=== PATIENT | male | born 1955 | race Caucasian/White ===

== ENCOUNTER 2021-07-13 20:09 | Emergency (ER) | payer MEDICAID, SELFPAY ==
--- NOTE | ~2021-07-13 | XR_ITS ---
EXAMINATION: XR CHEST CLINICAL INFORMATION: Fever. COMPARISON: None TECHNIQUE: Frontal view of the chest was obtained. FINDINGS: The lungs are clear. The cardiomediastinal silhouette is normal in size. There is no pleural effusion or pneumothorax. No acute osseous abnormality. XR/XR chest 1V IMPRESSION: No acute cardiopulmonary findings.
[2021-07-13 20:14] VITALS: BP 148/92; PULSE 103; RESP 18; TEMP 38.8; O2SAT 95; BMI 25.9
--- NOTE | 2021-07-13 20:38 | ED_ITS ---
HPI - General Adult General Chief complaint: Back Pain/Injury Stated complaint: Lower back pain Time Seen by Provider: 07/13/21 20:26 Source: patient Mode of arrival: ambulatory Limitations: no limitations History of Present Illness HPI narrative: Patient comes emergency room complaining middle and lower back pain, and bilateral leg pain. Patient has injury. Patient complaining of fever, no chills, complaining of fatigue, generalized malaise. Denies vomiting or diarrhea. Patient states that his granddaughter tested positive for COVID-19 approximately 1 week ago Related Data Previous Rx's Medication Instructions Recorded acetaminophen 500 mg tablet 500 mg PO QID PRN #20 tab 07/13/21 Allergies Allergy/AdvReac Type Severity Reaction Status Date / Time No Known Allergies Allergy Verified 07/13/21 20:34 Review of Systems Review of Systems: Constitutional : No Weight loss complaining of chills, generalized malaise ENT/Mouth : No Hearing loss, No Ear Pain, No Nasal Congestion, No Sinus Pain, No Hoarseness, No sore throat, No Rhinorrhea, No Swallowing Difficulty Eyes: Being of bilateral eye burning sensation, No Swelling, No Redness, No Foreign Body, No Discharge, No Vision Changes Cardiovascular : No Chest Pain, No SOB, No Dyspnea on Exertion, No Orthopnea, No Edema, No Palpitations Respiratory : No Cough, No Sputum, No Wheezing, No Smoke Exposure, No Dyspnea Gastrointestinal : No Nausea, No Vomiting, No Diarrhea, No Constipation, No abdominal Pain, No Hematochezia, No Melena Genitourinary : no irregular bleeding, No Dysuria, No Urinary Frequency, No Hematuria, No Urinary Incontinence, No Urgency, No Flank Pain, No Urinary Flow Changes, No Hesitancy Musculoskeletal : Complaining of diffuse myalgias in the back, legs, Skin : No Skin Lesions, No rash Neuro : No Weakness, No Numbness, No Paresthesias, No Loss of Consciousness, No Dizziness, No Headache Psych : No Anxiety/Panic, No Depression, No SI/HI/AH/VH, No Social Issues, Heme/Lymph: No Bruising, No Bleeding,No Lymphadenopathy Endocrine : No Polyuria, No Polydipsia, No Temperature Intolerance [facility] Past Medical History Medical History (Updated 07/13/21 @ 22:31 by Becka Antoine MD) Hypertension Social History Social History Advance Directives: No Advance Directives Information Provided: No Physical Exam Vital Signs: Vital Signs: Last Vital Signs Temp 100.3 F 07/13/21 22:24 Pulse 95 07/13/21 22:24 Resp 16 07/13/21 22:24 BP 142/84 H 07/13/21 22:24 Pulse Ox 97 07/13/21 22:24 Body Mass Index 25.9 Const: Other: Appearance: Alert. Oriented X3. No acute distress. Eyes: Pupils equal, round and reactive to light. ENT: Pharynx normal. Neck: Normal inspection. Neck supple. No lymph nodes noted. No crepitus CVS: Normal heart rate and rhythm. Pulses normal. Normal S1 and S2 Respiratory: No respiratory distress. Breath sounds normal. No Wheezing. No rales Abdomen: Soft and nontender. No rigidity. No distention. good BS x4 Skin: Skin warm and dry. Normal skin color. Normal skin turgor. Extremities: No lower extremity edema.No Lacerations. No Rash Neuro: Oriented X 3. No motor deficit. No sensory deficit. Moving all extermities. No slurred speech. Course Course Course Narrative: I discussed with the patient that he tested positive for COVID-19. Medical Decision Making Lab Data Labs: Lab Results 07/13/21 07/13/21 Range/Units 20:36 20:49 Urine Color YELLOW Urine Appearance HAZY Urine pH 6.0 (5.0-8.0) Ur Specific [place] 1.025 (1.005-1.025) Urine Protein TRACE (NEG-TRACE) MG/DL Urine Glucose (UA) NEG (NEG) MG/DL Urine Ketones 5 (NEG) MG/DL Urine Blood 3+ H (NEG) Urine Nitrite NEG (NEG) Ur Leukocyte Esterase NEG (NEG) Urine RBC 76-150 H (0) /HPF Urine WBC 0-2 (0-4) /HPF Ur Squamous Epith Cells 1+ /LPF Urine Bacteria NONE /LPF COVID-19 (DAVID) Positive A (Negative) COVID-19 Clin Com See Note Imaging Data Chest x-ray: Radiologist's impression: The lungs are clear. The cardiomediastinal silhouette is normal in size. There is no pleural effusion or pneumothorax. No acute osseous abnormality. XR/XR chest 1V IMPRESSION: No acute cardiopulmonary findings. Discharge Plan Discharge Clinical Impression: COVID-19 Patient Disposition: Home, Self-Care Instructions: COVID-19 (Coronavirus Disease 2019) (ED) Additional Instructions: You need to self isolate for 14 days. Please follow-up with your primary care physician tomorrow. If you have any worsening or new symptoms, please return to the emergency room or call 911 Prescriptions: New acetaminophen 500 mg tablet 500 mg PO QID PRN (Reason: fever or pain) Qty: 20 RF: 0
[2021-07-13] MEDS: Acetaminophen 325 MG TABLET 650 MG PO (20:44)
[2021-07-13 20:49] LABS: COVID-19 Test Positive (Negative)
[2021-07-13 20:55] LABS: Glucose Urine UA NEG (NEG); Leukocyte Esterase Urine NEG (NEG); Nitrite Urine NEG (NEG); Specific Gravity - Urine 1.025 (1.005-1.025); UACC Culture Trigger NO; Urine Blood 3+ (NEG); Urine Ketones 5 MG/DL (NEG); Urine Protein TRACE MG/DL (NEG-TRACE)
[2021-07-13 20:56] LABS: Appearance Urine HAZY; Color Urine YELLOW
[2021-07-13 21:02] LABS: Squamous Epithelial Cell Urine 1+ /LPF; WBC Urine 0-2 /HPF (0-4)
[2021-07-13 22:24] VITALS: BP 142/84; PULSE 95; RESP 16; TEMP 37.9; O2SAT 97
== END 2021-07-13 23:25 | disposition home or self-care (01) ==
PROVIDERS: Emergency Provider Emergency Medicine; PCP Internal Medicine
DX: U07.1 COVID-19 (principal); R50.9 Fever, unspecified; I10 Essential (primary) hypertension
CPT/HCPCS: 36415; 71045; 81001; 87635; 99283; 99284

== ENCOUNTER 2022-05-21 15:52 | Emergency (ER) | payer MEDICARE, MEDICAID, SELFPAY ==
--- NOTE | ~2022-05-21 | XR_ITS ---
EXAMINATION: XR LUMBOSACRAL SPINE CLINICAL INFORMATION: Back pain. COMPARISON: 07/01/2019 lumbar spine radiographs. TECHNIQUE: Three views of the lumbosacral spine. FINDINGS: L5-S1 is transitional with partial lumbarization of S1, greater on the right. There is normal lumbar lordosis and spinal alignment. Mild multilevel disc space narrowing is seen. There is no acute fracture. The soft tissues are unremarkable. 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 No definitive acute abnormality.
--- NOTE | 2022-05-21 16:14 | ECG_ITS ---
Test Reason : syncope Blood Pressure : / mmHG Vent. Rate : 067 BPM Atrial Rate : 067 BPM P-R Int : 148 ms QRS Dur : 094 ms QT Int : 372 ms P-R-T Axes : 052 040 041 degrees QTc Int : 393 ms Normal sinus rhythm Normal ECG No previous ECGs available Referred By: Lizz Ferguson Electronically Signed By:ANDREAS BERMUDEZ MD
--- NOTE | 2022-05-21 16:16 | ED_ITS ---
HPI - Extremity Injury (Upper) General Chief Complaint: Syncope Stated Complaint: rt hand laceration Time Seen by Provider: 05/21/22 16:03 Source: patient and family Mode of arrival: ambulatory Limitations: language barrier History of Present Illness HPI narrative: 66-year-old male with a history of hypertension here with reports of laceration to the right hand. Patient is right-hand dominant. Was cleaning some brush by a metal fence with his hand slipped causing it to puncture into the top of the nate on the fence. Patient was able to remove his hand from the fence. After this he felt very dizzy and lightheaded. His daughter said he got very pale and sweaty when she was managing his hand. She tells me she lowered him to the ground and she believes he may have briefly lost consciousness. No shaking activity or incontinence. No preceding symptoms of chest pain or palpitations. Patient had 2 additional episodes after this happened. Last tetanus unknown Related Data Previous Rx's Medication Instructions Recorded acetaminophen 500 mg tablet 500 mg PO QID PRN fever or pain 07/13/21 #20 tabs Allergies Allergy/AdvReac Type Severity Reaction Status Date / Time No Known Allergies Allergy Verified 07/13/21 20:34 Review of Systems Review of Systems: Yes all other systems are reviewed and are negative Constitutional: Constitutional: Reports no additional constitutional complaints, Denies body ache(s), Denies chills, Denies fever(s), Denies headache(s) and Denies weakness Eyes: Eyes: Reports no additional eye complaints and Denies change in vision ENT: Reports system reviewed and no additional complaints, except as documented, Reports dizziness, Denies headache(s), Denies nasal congestion, Denies nasal discharge and Denies neck pain Cardiovascular: Cardiovascular: Reports no additional cardiovascular complaints, Denies chest pain, Reports syncope, Denies leg edema and Denies dyspnea Respiratory: Respiratory: Reports no additional respiratory complaints, Denies cough and Denies dyspnea Gastrointestinal: Gastrointestinal: Reports no additional gastrointestinal complaints, Denies abdominal pain, Denies diarrhea, Denies nausea and Denies vomiting Genitourinary: Genitourinary: Denies urinary incontinence Musculoskeletal: Musculoskeletal: Reports no additional musculoskeletal complaints, Denies back pain, Denies arthralgias, Denies joint swelling, Denies neck pain, Denies numbness and Denies tingling Integumentary/Breasts: Skin/Breast: Reports system reviewed and no additional complaints, except as docu and Denies rash Comments: +lac Neurologic: Reports system reviewed and no additional complaints, except as documented, Denies Abnormal speech present, Reports dizziness, Reports syncope, Denies headache(s), Denies numbness, Denies tingling and Denies weakness PMFSH Past Medical History Attestation statement: The following information was validated with the patient. Source: old records reviewed and nursing notes reviewed Medical History Hypertension Social History Social History Advance Directives: No Advance Directives Information Provided: No Physical Exam Vital Signs: Vital Signs: Last Vital Signs Temp 98.1 F 05/21/22 16:48 Pulse 76 05/21/22 17:17 Resp 16 05/21/22 16:38 BP 108/76 05/21/22 17:17 Pulse Ox 99 05/21/22 16:48 O2 Del Method 05/21/22 16:48 BMI result Body Mass Index 24.3 Const: General: cooperative, healthy appearing, comfortable and no acute distress Orientation/consciousness: patient oriented x3 Limitations: no limitations HEENT: Head: Yes normal to inspection Ears: hearing grossly normal bilaterally General nose exam: Normal external nose present Face and sinus: Yes normal facial exam Mouth: Normal oral and palatal mucosa present Throat: Yes posterior oropharynx normal Eyes: General: appearance normal, both eyes and all related structures Pupils: Equal, round and reactive pupils present Neck: Neck: Yes normal visual inspection Chest: Chest palpation & inspection: normal inspection of the chest Resp: Effort & Inspection: normal respiratory effort Auscultation: clear to auscultation bilaterally Cardio: Rate: regular rate Rhythm: regular rhythm Peripheral pulses: Peripheral pulses 2+ throughout GI: Inspection: Yes normal to inspection Palpation (GI): Soft to palpation and nontender Auscultation: normal bowel sounds Back/Spine/Pelvis: Thoracic/Lumbar Spine: thoracic and lumbar spine normal to inspection Skin: General skin exam: no rashes or lesions noted Neuro: General: patient oriented x3, no focal motor deficits and normal sensation to monofilament Cranial nerves: Yes CN's II-XII intact bilaterally, Yes Equal, round and reactive pupils present, Yes Bilaterally intact EOM present, Yes Nystagmus not present, Yes Normal facial strength present and Yes Midline tongue present Cognition (Neuro): normal cognition Speech: No Abnormal speech present Gait exam (Neuro): Normal gait present Motor exam (neuro): 5/5 motor strength present throughout Sensory Exam: Normal double simultaneous stimulation for sensation Extrem: General: Yes normal to inspection, Yes no pedal edema and Yes no calf tenderness Hand/finger images: 1. To the lateral aspect there is a laceration that is a flap and curved. Bleeding is controlled. It is approximately 1 cm Course Course Course Narrative: Labs are unremarkable. EKG shows no ischemic changes. Patient complaining of some lower back pain. He has some mid lumbar tenderness with no step-offs deformities. Full range of motion of the lumbar spine. Normal neuro exam. Will check x-rays. His orthostatics are positive. Will give 1 L of fluid Reevaluation(s) Reevaluation #1: X-rays of lumbar spine showed degenerative changes. No acute bony abnormality. Patient will be discharged when his fluids are completed. Sign out to Yoana WOODRUFF pending fluids completion. Time: 19:00 MDM - Extremity Injury (Upper) MDM Narrative Medical decision making narrative: 66-year-old male here with laceration to the right hand after a puncture wound from a piece of metal fence. Patient has had several syncopal episodes since the injury which has preceding symptoms of feeling lightheaded and dizzy. No reports of chest pain or shortness of breath or palpitations. Patient's neurological exam is normal. He has a small puncture wound to the right lateral aspect of the hand. Bleeding is controlled. Will need updated tenderness. Due to reports of syncope will obtain labs, EKG, orthostatics. Likely vasovagal Medical Records Attestation: I reviewed the patient's medical records. Lab Data Attestation: I reviewed the patient's lab results. Result diagrams: 05/21/22 16:31 05/21/22 16:31 Labs: Lab Results 05/21/22 05/21/22 05/21/22 Range/Units 16:31 16:31 16:31 WBC 8.5 (4.8-10.8) X10*3/uL RBC 4.12 L (4.60-5.80) X10*6/uL Hgb 13.1 L (14.0-18.0) g/dl Hct 38.1 L (42.0-52.0) % MCV 92.5 (80.0-98.0) fL MCH 31.8 (27.0-33.0) pg MCHC 34.4 (31.0-36.0) g/dl RDW 12.7 (11.0-16.0) % Plt Count 259 (160-400) X10*3/uL MPV 9.4 (9.4-12.4) fL Immature Gran % (Auto) 1.1 H (0.0-0.4) % Neut % (Auto) 68.9 (45-73) % Lymph % (Auto) 20.8 (20-40) % [place] % (Auto) 7.5 (2-11) % Eos % (Auto) 1.1 (0-4) % Baso % (Auto) 0.6 (0-2) % Lymph # (Auto) 1.8 (1.2-4.9) X10*3/uL [place] # (Auto) 0.6 (0.1-1.2) X10*3/uL Eos # (Auto) 0.1 (0.0-0.4) X10*3/uL Baso # (Auto) 0.1 (0.0-0.2) X10*3/uL Abs Immat Gran (auto) 0.09 H (0.00-0.03) X10*3/uL Absolute Neuts (auto) 5.9 (2.0-8.3) x10*3/uL Absolute Nucleated RBC 0.000 (0.0-0.012) X10*3/uL Nucleated RBC % (auto) 0.0 (0.0-0.2) /100WBC Sodium 137 (135-145) mmol/L Potassium 4.5 (3.3-5.1) mmol/L Chloride 105 (96-108) mmol/L Carbon Dioxide 25 (22-29) mmol/L Anion Gap 12 (12-20) BUN 19 H (9-16) mg/dL Creatinine 1.25 (0.5-1.4) mg/dL Estim Creat Clear Calc 55.8 Estimated GFR 58 Random Glucose 160 H (60-115) mg/dL Calcium 9.8 (8.4-10.2) mg/dL Total Bilirubin 1.0 (0.0-1.0) mg/dL Direct Bilirubin 0.3 (0.0-0.5) mg/dL AST 16 (5-37) U/L ALT 14 (0-40) U/L Alkaline Phosphatase 68 (39-117) U/L Troponin I High Sens < 3.5 (<3.5-35.0) ng/L Total Protein 7.4 (6.5-8.0) g/dL Albumin 4.1 (3.5-5.0) g/dL Imaging Data lumbar x-ray: Attestation: I personally reviewed and interpreted this imaging study as follows: Radiologist's impression: [address] [address] XRay Report Signed Patient: Abraham Camacho MR#: [id number] : 1955 Acct:[id number] Age/Sex: 66 / M ADM Date: 05/21/22 Loc: .ED Attending Dr: Ordering Physician: Lizz Ferguson NP Date of Service: 05/21/22 Procedure(s): XR lumbar spine 2-3V Accession Number(s): [id number] cc: Lizz Ferguson NP~ EXAMINATION: XR LUMBOSACRAL SPINE CLINICAL INFORMATION: Back pain. COMPARISON: 07/01/2019 lumbar spine radiographs. TECHNIQUE: Three views of the lumbosacral spine. FINDINGS: L5-S1 is transitional with partial lumbarization of S1, greater on the right. There is normal lumbar lordosis and spinal alignment. Mild multilevel disc space narrowing is seen. There is no acute fracture. The soft tissues are unremarkable. 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 No definitive acute abnormality. ECG Data Attestation: I personally reviewed and interpreted this ECG as follows: ECG interpretation date: 05/21/22 ECG interpretation time: 16:28 Interpretation: Normal sinus rhythm with a rate of 67, normal HI, normal QRS, normal QT Procedures Laceration Laceration 1: Site: hand Side (If applicable): right Size (cm): 1.5 Description: flap Depth: simple, single layer Local Anesthetic: other anesthetic (Skin glue) Pre-repair: wound explored and irrigated extensively Discharge Plan Discharge Clinical Impression: Vasovagal syncope, Syncope due to orthostatic hypotension, Low back pain, Laceration of hand Patient Disposition: Still a Patient Instructions: Laceration (ED), Syncope (ED), Acute Low Back Pain (ED) Additional Instructions: Your laceration was closed with skin glue. There were Steri-Strips that were applied. After 5-7 days he is will fall off on their own. Do not remove them. Your EKG and lab work were normal. Your blood pressure did drop with position changes. Your received some IV fluids while you are here Change positions slowly. Stay well hydrated Your x-rays of your back showed degenerative changes. Prescriptions: No Action acetaminophen 500 mg tablet 500 mg PO QID PRN (Reason: fever or pain) Qty: 20 0RF Referrals: Annette Emanuel MD [Primary Care Provider] -
[2022-05-21 16:23] VITALS: BP 120/64; PULSE 65
[2022-05-21 16:38] VITALS: BP 120/64; PULSE 66; RESP 16; TEMP 36.7; O2SAT 99; BMI 24.3
[2022-05-21 16:38] LABS: MANUAL DIFF FLAG NO
[2022-05-21 16:48] VITALS: BP 120/64; PULSE 66; TEMP 36.7; O2SAT 99
[2022-05-21 16:59] LABS: Alanine Aminotransferase 14 U/L (0-40); Albumin Level 4.1 g/dL (3.5-5.0); Alkaline Phosphatase 68 U/L (39-117); Anion Gap 12 (12-20); Aspartate Amino Transferase 16 U/L (5-37); Bilirubin Direct 0.3 mg/dL (0.0-0.5); Blood Urea Nitrogen 19 mg/dL (9-16); Calcium 9.8 mg/dL (8.4-10.2); Carbon Dioxide 25 mmol/L (22-29); Chloride 105 mmol/L (96-108); Creatinine Clr Calc Pharmacy 55.8; Estimated Glomerular Filt Rate 58; Glucose Random 160 mg/dL (60-115); Potassium 4.5 mmol/L (3.3-5.1); Sodium 137 mmol/L (135-145); Total Protein 7.4 g/dL (6.5-8.0)
[2022-05-21 17:02] LABS: Basophils Absolute Auto 0.1 X10*3/uL (0.0-0.2); Basophils Percent Auto 0.6 % (0-2); Eosinophils Absolute Auto 0.1 X10*3/uL (0.0-0.4); Eosinophils Percent Auto 1.1 % (0-4); Hematocrit 38.1 % (42.0-52.0); Hemoglobin 13.1 g/dl (14.0-18.0); Imm Gran Abs Auto 0.09 X10*3/uL (0.00-0.03); Imm Gran Pct Auto 1.1 % (0.0-0.4); Lymphocytes Absolute Auto 1.8 X10*3/uL (1.2-4.9); Lymphocytes Percent Auto 20.8 % (20-40); Mean Corpuscular HGB Conc 34.4 g/dl (31.0-36.0); Mean Corpuscular Hemoglobin 31.8 pg (27.0-33.0); Mean Corpuscular Volume 92.5 fL (80.0-98.0); Mean Platelet Volume 9.4 fL (9.4-12.4); Monocytes Absolute Auto 0.6 X10*3/uL (0.1-1.2); Monocytes Percent Auto 7.5 % (2-11); Neutrophils Absolute Auto 5.9 x10*3/uL (2.0-8.3); Neutrophils Percent Auto 68.9 % (45-73); Platelet Count 259 X10*3/uL (160-400); Red Blood Count 4.12 X10*6/uL (4.60-5.80); Red Cell Distribution Width 12.7 % (11.0-16.0); White Blood Count 8.5 X10*3/uL (4.8-10.8)
[2022-05-21 17:05] LABS: Troponin-I High Sensitivity < 3.5 ng/L (<3.5-35.0)
[2022-05-21 17:16] VITALS: BP 138/75; PULSE 67
[2022-05-21 17:17] VITALS: BP 108/76; PULSE 76
[2022-05-21] MEDS: 0.9 % Sodium Chloride 1,000 ML 999 ML IV (18:17)
[2022-05-21] MEDS: Diphth,Pertus(ACell),Tet Adult 0.5 ML SYRINGE IM (18:17)
== END 2022-05-21 20:05 | disposition home or self-care (01) ==
PROVIDERS: Nurse Practitioner Family; Emergency Provider Emergency Medicine; PCP Internal Medicine
DX: S61.411A Laceration without foreign body of right hand, initial encounter (principal); R55 Syncope and collapse; M54.50 Low back pain, unspecified; W26.9XXA Contact with unspecified sharp object(s), initial encounter; Y93.9 Activity, unspecified; Y92.9 Unspecified place or not applicable; Y99.9 Unspecified external cause status; Z79.899 Other long term (current) drug therapy
CPT/HCPCS: 12001; 36415; 72100; 80048; 80076; 84484; 85025; 90471; 90715; 93005; 96360; 99284

== ENCOUNTER 2023-01-12 15:16 | Observation (INO) | payer MEDICARE, MEDICAID, SELFPAY ==
[2023-01-12 15:29] VITALS: BP 139/85; PULSE 95; RESP 20; TEMP 36.7; O2SAT 97; BMI 24.1
--- NOTE | 2023-01-12 15:32 | ED_ITS ---
HPI - General Adult General Chief complaint: General Medical Stated complaint: Lympodema Time Seen by Provider: 01/12/23 15:28 Source: patient Mode of arrival: EMS Limitations: no limitations History of Present Illness HPI narrative: Patient comes to the emergency room complaining of upper lip swelling started approximately 9 hours ago. Patient states that it started on the right side of his upper lip and gradually expanded to the left side of his upper lip. Patient denies any difficulty breathing, no shortness of breath. Patient states that his lip feels weird. Patient takes for blood pressure medications a combination pill of amlodipine 10 mg/benazepril 40 mg Related Data Previous Rx's Medication Instructions Recorded acetaminophen 500 mg tablet 500 mg PO QID PRN fever or pain 07/13/21 #20 tabs Allergies Allergy/AdvReac Type Severity Reaction Status Date / Time RENA Inhibitors AdvReac Severe Angioedema Verified 01/12/23 15:38 Review of Systems Review of Systems: Constitutional : No Weight loss, No Fever, No Chills, No Night Sweats, No Fatigue, No Malaise ENT/Mouth : Complaining of upper lip swelling, No Hearing loss, No Ear Pain, No Nasal Congestion, No Sinus Pain, No Hoarseness, No sore throat, No Rhinorrhea, No Swallowing Difficulty Eyes: No Eye Pain, No Swelling, No Redness, No Foreign Body, No Discharge, No Vision Changes Cardiovascular : No Chest Pain, No SOB, No Dyspnea on Exertion, No Orthopnea, No Edema, No Palpitations Respiratory : No Cough, No Sputum, No Wheezing, No Smoke Exposure, No Dyspnea Gastrointestinal : No Nausea, No Vomiting, No Diarrhea, No Constipation, No abdominal Pain, No Hematochezia, No Melena Genitourinary : no irregular bleeding, No Dysuria, No Urinary Frequency, No Hematuria, No Urinary Incontinence, No Urgency, No Flank Pain, No Urinary Flow Changes, No Hesitancy Musculoskeletal : No joint pain, No Myalgias, No Joint Swelling Skin : No Skin Lesions, No rash Neuro : No Weakness, No Numbness, No Paresthesias, No Loss of Consciousness, No Dizziness, No Headache Psych : No Anxiety/Panic, No Depression, No SI/HI/AH/VH, No Social Issues, Heme/Lymph: No Bruising, No Bleeding,No Lymphadenopathy Endocrine : No Polyuria, No Polydipsia, No Temperature Intolerance [facility] Past Medical History Medical History Hypertension Social History Social History Patient Tobacco Use Status: Never used Tobacco Advance Directives: No Advance Directives Information Provided: No Physical Exam ED Vital Signs: Vital Signs - 24 hr 01/12/23 15:29 01/12/23 18:03 01/12/23 20:00 Temperature 98.1 F 98.4 F 98.3 F Pulse Rate 95 72 67 Respiratory Rate 20 18 12 Blood Pressure 139/85 131/78 126/73 Pulse Oximetry 97 98 98 Oxygen Delivery Method Room Air Room Air Room Air BMI result Body Mass Index 24.1 Medications Administered Generic Name Dose Route Start Last Admin Trade Name Freq PRN Reason Stop Dose Admin Enoxaparin Sodium 40 mg 01/12/23 23:00 01/12/23 22:33 Enoxaparin Sodium 40 Mg/0.4 Ml Syringe SUBCUT 40 mg Q24H [place] Administration Enoxaparin Sodium 40 mg 01/12/23 23:00 01/12/23 22:43 Enoxaparin Sodium 40 Mg/0.4 Ml Syringe SUBCUT Not Given Q24H [place] Discontinued Medications Generic Name Dose Route Start Last Admin Trade Name Freq PRN Reason Stop Dose Admin Diphenhydramine HCl 50 mg 01/12/23 15:29 01/12/23 15:47 Diphenhydramine Hcl 50 Mg/Ml Vial IVPUSH 01/12/23 15:30 50 mg ONCE ONE Administration Diphenhydramine HCl 25 mg 01/12/23 18:15 01/12/23 19:18 Diphenhydramine Hcl 50 Mg/Ml Vial IVPUSH 01/12/23 18:16 25 mg ONCE ONE Administration Famotidine 20 mg 01/12/23 15:29 01/12/23 15:47 Famotidine/Pf 20 Mg/2 Ml Vial IVPUSH 01/12/23 15:30 20 mg ONCE ONE Administration Famotidine 20 mg 01/12/23 18:15 01/12/23 19:18 Famotidine/Pf 20 Mg/2 Ml Vial IVPUSH 01/12/23 18:16 20 mg ONCE ONE Administration Methylprednisolone Sodium Succinate 125 mg 01/12/23 15:29 01/12/23 15:47 Methylprednisolone Sod Succ 125 Mg/2 Ml Vial IVPUSH 01/12/23 15:30 125 mg ONCE ONE Administration Methylprednisolone Sodium Succinate 125 mg 01/12/23 18:15 01/12/23 19:18 Methylprednisolone Sod Succ 125 Mg/2 Ml Vial IVPUSH 01/12/23 18:16 125 mg ONCE ONE Administration Medical Decision Making Medical Decision Making [facility] Narrative: -patient received 1 dose of Solu-Medrol, Pepcid and Benadryl, no epinephrine indicated at this time. -patient was in observation, however he did not improve, -patient receiving another round of Solu-Medrol, Pepcid and Benadryl. Patient remains complaining of swollen upper lip, no airway compromise, no difficulty swallowing, no shortness of breath or foreign body sensation in the throat -despite several treatments, patient's lips continue being swollen, they actually look a bit more swollen. However, there is no uvular or oropharyngeal edema, no difficulty speaking or swallowing, no tongue edema. -discussed the patient with Dr. Araujo, patient being admitted for observation. I discussed the above-mentioned with the patient, patient agrees with plan Differential Diagnosis Differential Diagnoses: The differential diagnosis associated with the presentation includes (Allergic reaction, angioedema) Admission/Observation Consideration of admission/observation: Escalation of care including admission/observation considered Consult Healthcare Provider Management of the patient was discussed with: Hospitalist Lab Data [facility] Lab Attestation statement: I reviewed the patient's lab results. 01/12/23 16:07 01/12/23 16:07 Labs: Lab Results 01/12/23 01/12/23 Range/Units 16:07 16:07 WBC 6.8 (4.8-10.8) X10*3/uL RBC 4.05 L (4.60-5.80) X10*6/uL Hgb 12.3 L (14.0-18.0) g/dl Hct 36.9 L (42.0-52.0) % MCV 91.1 (80.0-98.0) fL MCH 30.4 (27.0-33.0) pg MCHC 33.3 (31.0-36.0) g/dl RDW 12.7 (11.0-16.0) % Plt Count 258 (160-400) X10*3/uL MPV 8.9 L (9.4-12.4) fL Immature Gran % (Auto) 0.3 (0.0-0.4) % Neut % (Auto) 65.4 (45-73) % Lymph % (Auto) 21.0 (20-40) % [place] % (Auto) 7.9 (2-11) % Eos % (Auto) 4.8 H (0-4) % Baso % (Auto) 0.6 (0-2) % Lymph # (Auto) 1.4 (1.2-4.9) X10*3/uL [place] # (Auto) 0.5 (0.1-1.2) X10*3/uL Eos # (Auto) 0.3 (0.0-0.4) X10*3/uL Baso # (Auto) 0.0 (0.0-0.2) X10*3/uL Abs Immat Gran (auto) 0.02 (0.00-0.03) X10*3/uL Absolute Neuts (auto) 4.5 (2.0-8.3) x10*3/uL Absolute Nucleated RBC 0.000 (0.0-0.012) X10*3/uL Nucleated RBC % (auto) 0.0 (0.0-0.2) /100WBC Sodium 140 (135-145) mmol/L Potassium 4.1 (3.3-5.1) mmol/L Chloride 108 (96-108) mmol/L Carbon Dioxide 25 (22-29) mmol/L Anion Gap 11 L (12-20) BUN 14 (9-16) mg/dL Creatinine 1.12 (0.5-1.4) mg/dL Estim Creat Clear Calc 61.4 Estimated GFR > 60 Random Glucose 104 (60-115) mg/dL Calcium 9.4 (8.4-10.2) mg/dL Critical Care Time Critical Care Time Critical Care Time: Yes Total Critical Care Time: 45 Attestation: I have personally provided critical care time. Time includes review of lab data, radiology results, discussion with consultants, and monitoring for potential decompensation. Intervention performed as documented. Discharge Plan Discharge Clinical Impression: Angioedema Patient Disposition: Admitted As Inpatient Prescriptions: No Action acetaminophen 500 mg tablet 500 mg PO QID PRN (Reason: fever or pain) Qty: 20 0RF
[2023-01-12] MEDS: diphenhydrAMINE HCL 50 MG/ML VIAL IVPUSH (15:47)
[2023-01-12] MEDS: methylPREDNISolone Sod Succ 125 MG/2 ML VIAL IVPUSH ×2 (15:47→19:18)
[2023-01-12] MEDS: Famotidine/PF 20 MG/2 ML VIAL IVPUSH ×2 (15:47→19:18)
[2023-01-12 16:12] LABS: MANUAL DIFF FLAG NO
[2023-01-12 16:15] LABS: Basophils Percent Auto 0.6 % (0-2); Eosinophils Absolute Auto 0.3 X10*3/uL (0.0-0.4); Eosinophils Percent Auto 4.8 % (0-4); Hematocrit 36.9 % (42.0-52.0); Hemoglobin 12.3 g/dl (14.0-18.0); Imm Gran Abs Auto 0.02 X10*3/uL (0.00-0.03); Imm Gran Pct Auto 0.3 % (0.0-0.4); Lymphocytes Absolute Auto 1.4 X10*3/uL (1.2-4.9); Mean Corpuscular HGB Conc 33.3 g/dl (31.0-36.0); Mean Corpuscular Hemoglobin 30.4 pg (27.0-33.0); Mean Corpuscular Volume 91.1 fL (80.0-98.0); Mean Platelet Volume 8.9 fL (9.4-12.4); Monocytes Absolute Auto 0.5 X10*3/uL (0.1-1.2); Monocytes Percent Auto 7.9 % (2-11); Neutrophils Absolute Auto 4.5 x10*3/uL (2.0-8.3); Neutrophils Percent Auto 65.4 % (45-73); Platelet Count 258 X10*3/uL (160-400); Red Blood Count 4.05 X10*6/uL (4.60-5.80); Red Cell Distribution Width 12.7 % (11.0-16.0); White Blood Count 6.8 X10*3/uL (4.8-10.8)
[2023-01-12 16:30] LABS: Anion Gap 11 (12-20); Blood Urea Nitrogen 14 mg/dL (9-16); Calcium 9.4 mg/dL (8.4-10.2); Carbon Dioxide 25 mmol/L (22-29); Chloride 108 mmol/L (96-108); Creatinine Clr Calc Pharmacy 61.4; Estimated Glomerular Filt Rate > 60; Glucose Random 104 mg/dL (60-115); Potassium 4.1 mmol/L (3.3-5.1); Sodium 140 mmol/L (135-145)
[2023-01-12 18:03] VITALS: BP 131/78; PULSE 72; RESP 18; TEMP 36.9; O2SAT 98
[2023-01-12] MEDS: diphenhydrAMINE HCL 50 MG/ML VIAL 25 MG IVPUSH (19:18)
[2023-01-12 20:00] VITALS: BP 126/73; PULSE 67; RESP 12; TEMP 36.8; O2SAT 98
--- NOTE | 2023-01-12 22:26 | P.HPHOSP_ITS ---
History of Present Illness Date of Service: 01/12/23 Chief Complaint: Lip swelling this is a 67-year-old male with pertinent history of essential hypertension who presents to the emergency department for evaluation of upper lip swelling. It started approximately 9-10 hours prior to presentation. It was sudden in onset and involved the whole of upper lip. This has never happened before. No itching, difficulty breathing, difficulty eating, dyspnea. Patient is on RENA- inhibitor for essential hypertension. He denies fever, chills, chest discomfort, palpitations, shortness of breath, abdominal pain, changes in urinary or bowel habits. In the emergency department, patient is hemodynamically stable. He was given H2 blockers and steroid. Review of Systems Constitutional: Constitutional: Reports no additional constitutional complaints Cardiovascular: Cardiovascular: Reports no additional cardiovascular complaints Respiratory: Respiratory: Reports no additional respiratory complaints Gastrointestinal: Gastrointestinal: Reports no additional gastrointestinal complaints Genitourinary: Genitourinary: Reports no additional male genitourinary complaints PMFSH Medical History Hypertension Pertinent family history: No family history of CAD Social History Advance Directives: No Advance Directives Information Provided: No Meds Allergies Allergy/AdvReac Type Severity Reaction Status Date / Time RENA Inhibitors AdvReac Severe Angioedema Verified 01/12/23 15:38 Active Medications: Current Medications Acetaminophen (Acetaminophen 325 Mg Tablet) 650 mg PO Q6H PRN PRN Reason: Pain, Mild (Pain Scale 1-3) Enoxaparin Sodium (Enoxaparin Sodium 40 Mg/0.4 Ml Syringe) 40 mg SUBCUT Q24H THEODORE Melatonin (Melatonin 3 Mg Tablet) 6 mg PO BEDTIME PRN PRN Reason: Insomnia Ondansetron HCl (Ondansetron Hcl 4 Mg/2 Ml Vial) 4 mg IVPUSH Q8H PRN PRN Reason: Nausea and Vomiting Pharmacy Consult (Consult Rx Perform Med Rec) 1 each MISCELLANE ONCE PRN PRN Reason: Consult order Sodium Chloride (0.9 % Sodium Chloride Flush 3 Ml Syringe) 3 ml IVFLUSH QSHIFT THEODORE Physical Exam Vital Signs and Narrative: Vital Signs: Last Vital Signs Temp 98.3 F 01/12/23 20:00 Pulse 67 01/12/23 20:00 Resp 12 01/12/23 20:00 BP 126/73 01/12/23 20:00 Pulse Ox 98 01/12/23 20:00 O2 Del Method 01/12/23 20:00 BMI result Body Mass Index 24.1 Middle-aged male lying in bed in no distress Neck supple, no JVD, upper lip swelling present Regular rate and rhythm, S1-S2 heard Regular breath sounds bilaterally, no wheezing or crackles appreciated Abdomen soft nontender, no guarding, no rigidity Patient is awake, alert and oriented to self, place, time and person ; no focal motor deficit Psych: Normal mood No pedal edema Results Labs 01/12/23 16:07 01/12/23 16:07 Labs: Laboratory Results - last 24 hr 01/12/23 01/12/23 16:07 16:07 MCV 91.1 MCH 30.4 MCHC 33.3 RDW 12.7 Plt Count 258 MPV 8.9 L Immature Gran % (Auto) 0.3 Neut % (Auto) 65.4 Lymph % (Auto) 21.0 [place] % (Auto) 7.9 Eos % (Auto) 4.8 H Baso % (Auto) 0.6 Lymph # (Auto) 1.4 [place] # (Auto) 0.5 Eos # (Auto) 0.3 Baso # (Auto) 0.0 Abs Immat Gran (auto) 0.02 Absolute Neuts (auto) 4.5 Absolute Nucleated RBC 0.000 Nucleated RBC % (auto) 0.0 Anion Gap 11 L Estim Creat Clear Calc 61.4 Estimated GFR > 60 Random Glucose 104 Calcium 9.4 Assessment and Plan (1) Angioedema: Status: Acute Plan this is a 67-year-old male with pertinent history of essential hypertension who presents to the emergency department for evaluation of upper lip swelling. #. Isolated angioedema of lip due to RENA-inhibitor: Discontinue RENA- inhibitor. Continue amlodipine. No concern for anaphylaxis or urticaria at the time of admission. Patient given antihistamine and steroid in the ER. Monitor for resolution. #. Essential hypertension: Continue amlodipine DVT prophylaxis: Lovenox 40 mg daily Full code Cardiac diet Time Spent With Patient Time: Total time managing care of this patient today ____ minutes. Quality Stroke Does the patient have a stroke diagnosis?: No VTE Prior VTE?: No VTE Risk Level:: Medical - moderate - high VTE Device Contraindication: Treatment Not Indicated VTE Drug Contraindication: N/A - Med Ordered
[2023-01-12] MEDS: Enoxaparin Sodium 40 MG/0.4 ML SYRINGE SUBCUT (22:33)
[2023-01-12 23:28] VITALS: BP 114/71; PULSE 68; RESP 14; TEMP 36.6; O2SAT 98
[2023-01-12 23:49] LABS: COVID-19 Test Negative (Negative); IDNOW Serial# 6674DD1D
[2023-01-13] MEDS: 0.9 % Sodium Chloride Flush 3 ML SYRINGE IVFLUSH ×2 (00:56→07:36)
--- NOTE | 2023-01-13 01:13 | PC.NURSE ---
Pt upper lip is swollen still, pt appears to be resting comfortably with no complaints. Pt's airway is patent with respirations equal bilaterally. Skin is warm and dry. Pt has been placed on the alarm security or surveillance monitor for continuous monitoring. No new orders at this time, pt is waiting bed placement.
[2023-01-13 05:47] LABS: Basophils Percent Auto 0.3 % (0-2); Hematocrit 39.3 % (42.0-52.0); Hemoglobin 13.1 g/dl (14.0-18.0); Imm Gran Abs Auto 0.04 X10*3/uL (0.00-0.03); Imm Gran Pct Auto 0.6 % (0.0-0.4); Lymphocytes Absolute Auto 0.9 X10*3/uL (1.2-4.9); Lymphocytes Percent Auto 14.5 % (20-40); MANUAL DIFF FLAG SCAN; Mean Corpuscular HGB Conc 33.3 g/dl (31.0-36.0); Mean Corpuscular Hemoglobin 30.2 pg (27.0-33.0); Mean Corpuscular Volume 90.6 fL (80.0-98.0); Mean Platelet Volume 8.7 fL (9.4-12.4); Monocytes Absolute Auto 0.1 X10*3/uL (0.1-1.2); Monocytes Percent Auto 1.1 % (2-11); Neutrophils Absolute Auto 5.4 x10*3/uL (2.0-8.3); Neutrophils Percent Auto 83.5 % (45-73); Platelet Count 278 X10*3/uL (160-400); Red Blood Count 4.34 X10*6/uL (4.60-5.80); Red Cell Distribution Width 12.4 % (11.0-16.0); SCAN SMEAR FLAG 1; White Blood Count 6.4 X10*3/uL (4.8-10.8)
[2023-01-13 06:03] LABS: Anion Gap 12 (12-20); Blood Urea Nitrogen 16 mg/dL (9-16); Calcium 9.3 mg/dL (8.4-10.2); Carbon Dioxide 23 mmol/L (22-29); Chloride 108 mmol/L (96-108); Creatinine Clr Calc Pharmacy 65.5; Estimated Glomerular Filt Rate > 60; Glucose Random 146 mg/dL (60-115); Potassium 4.4 mmol/L (3.3-5.1); Sodium 139 mmol/L (135-145)
[2023-01-13 06:22] VITALS: BP 115/73; PULSE 68; RESP 16; TEMP 36.8; O2SAT 97
[2023-01-13 06:25] LABS: SLIDE REVIEW VERIFIED
[2023-01-13] MEDS: amLODIPine Besylate 10 MG TABLET PO (07:35)
--- NOTE | 2023-01-13 08:03 | PC.NURSE ---
PT IS AWAKE AND HAD BREAKFAST. HE HAS A CHRONIC FOOT WOUND WITH EDEMA PRESENT/PLAN TO PLACE PT IN ADMISSION BED FOR BETTER POSITIONING. RANDOM GLUCOSE REMAINS OVER 400. IV ACCESS IS PATENT
--- NOTE | 2023-01-13 08:40 | PC.NURSE ---
PT WITHOUT SIGNIFICANT ANGIOEDEMA ,NO AIRWAY INVOLVEMENT, HE IS SITTING UPRIGHT AND HANDLES PO INTAKE WITHOUT DIFFICULTY.
--- NOTE | 2023-01-13 09:31 | PHA.MEDREC ---
Pharmacy Consult ? Medication Reconciliation Pharmacy has completed the medication reconciliation.
--- NOTE | 2023-01-13 10:01 | PM.DS ---
DS: Providers Provider Date of Service: 01/13/23 Date of admission: 01/12/23 22:05 Date of discharge: 01/13/23 Primary care physician: Unknown Physician Attending physician on discharge: Zaid Gomez DS: Diagnosis Discharge Diagnosis (1) Angioedema: Status: Acute DS: Summary Hospital Course Hospital Course: HPI: 67-year-old male with pertinent history of essential hypertension who presents to the emergency department for evaluation of upper lip swelling.? It started approximately 9-10 hours prior to presentation.? It was sudden in onset and involved the whole of upper lip.? This has never happened before.? No itching, difficulty breathing, difficulty eating, dyspnea.? Patient is on RENA-inhibitor for essential hypertension.? He denies fever, chills, chest discomfort, palpitations, shortness of breath, abdominal pain, changes in urinary or bowel habits. ? In the emergency department, patient is hemodynamically stable.? He was given H2 blockers and steroid. Hopsital course: Patient was admitted due to possible angioedema-swelling of lips-given steroids, Benadryl: Seems to be improved significantly,?He denies fever, chills, chest discomfort, palpitations, shortness of breath, abdominal pain, changes in urinary or bowel habits. Patient improved significantly, going home with p.o. steroids, Benadryl, EpiPen. Hypertension: patient's benzapril discontinued, continue amlodipine, so far blood pressure seems to be controlled. Patient was advised to monitor blood pressure out patiently and follow-up with PCP for further management. plan: continue p.o. steroids, Benadryl EpiPen also given . htn-patient's benzapril discontinued, continue amlodipine, so far blood pressure seems to be controlled. Follow-up with PCP outpatient. Above management discussed the patient detail length and in she understand and agreement with the plan, time spent 50 min. Time Spent with Patient Time attestation: Total time managing care of this patient today ____ minutes. Discharge coordination time: Greater than 30 minutes Quality: Safe Use of Opioids Does Pt have an Active Cancer Diagnosis on the Problem List?: No Quality: Stroke Does the patient have a stroke diagnosis?: No Physical Exam Vital Signs: Vital Signs: Last Vital Signs Temp 98.3 F 01/13/23 06:22 Pulse 68 02/14/23 06:22 Resp 16 01/13/23 06:22 BP 115/73 01/13/23 06:22 Pulse Ox 97 01/13/23 06:22 O2 Del Method 01/13/23 06:22 BMI result Body Mass Index 24.1 Appearance: Alert.? Oriented X3.? not in distress.? Eyes: Pupils equal, round and reactive to light.? Sclera nonicteric.? ENT: Pharynx normal.? Moist mucous membranes.lip swellin improved significantly cvs: rrr, [id number] , no murmur res: clear to auscultation ,no rhonchii or wheezing abd: no rebound or guarding ,nt, bs present. ext pulses present , no cyanosis . neuro: axo3 , nonfocal. DS: Data Data Completed and Pending Labs on day of discharge: Laboratory Results - last 24 hr 01/12/23 01/12/23 01/12/23 16:07 16:07 23:24 WBC 6.8 RBC 4.05 L Hgb 12.3 L Hct 36.9 L MCV 91.1 MCH 30.4 MCHC 33.3 RDW 12.7 Plt Count 258 MPV 8.9 L Immature Gran % (Auto) 0.3 Neut % (Auto) 65.4 Lymph % (Auto) 21.0 [place] % (Auto) 7.9 Eos % (Auto) 4.8 H Baso % (Auto) 0.6 Lymph # (Auto) 1.4 [place] # (Auto) 0.5 Eos # (Auto) 0.3 Baso # (Auto) 0.0 Abs Immat Gran (auto) 0.02 Absolute Neuts (auto) 4.5 Absolute Nucleated RBC 0.000 Nucleated RBC % (auto) 0.0 Smear Tech's Comments Sodium 140 Potassium 4.1 Chloride 108 Carbon Dioxide 25 Anion Gap 11 L BUN 14 Creatinine 1.12 Estim Creat Clear Calc 61.4 Estimated GFR > 60 Random Glucose 104 Calcium 9.4 COVID-19 (DAVID) Negative COVID-19 Clin Com See Note 01/13/23 01/13/23 05:35 05:35 WBC 6.4 RBC 4.34 L Hgb 13.1 L Hct 39.3 L MCV 90.6 MCH 30.2 MCHC 33.3 RDW 12.4 Plt Count 278 MPV 8.7 L Immature Gran % (Auto) 0.6 H Neut % (Auto) 83.5 H Lymph % (Auto) 14.5 L [place] % (Auto) 1.1 L Eos % (Auto) 0.0 Baso % (Auto) 0.3 Lymph # (Auto) 0.9 L [place] # (Auto) 0.1 Eos # (Auto) 0.0 Baso # (Auto) 0.0 Abs Immat Gran (auto) 0.04 H Absolute Neuts (auto) 5.4 Absolute Nucleated RBC 0.000 Nucleated RBC % (auto) 0.0 Smear Tech's Comments VERIFIED Sodium 139 Potassium 4.4 Chloride 108 Carbon Dioxide 23 Anion Gap 12 BUN 16 Creatinine 1.05 Estim Creat Clear Calc 65.5 Estimated GFR > 60 Random Glucose 146 H Calcium 9.3 COVID-19 (DAVID) COVID-19 Clin Com Discharge Plan Discharge Patient Disposition: Home, Self-Care Discharge Diagnosis: Angioedema suspected possibly related to RENA (blood pressure medication). Referrals: Physician,Unknown J [Primary Care Provider] - 1 Week Discharge Medications: New amlodipine [Norvasc] 10 mg tablet 10 mg PO DAILY Qty: 30 0RF prednisone 20 mg tablet 20 mg PO DAILY Qty: 2 0RF diphenhydramine HCl [Benadryl] 25 mg capsule 25 mg PO TID PRN (Reason: allergy symptoms) Qty: 6 0RF epinephrine [EpiPen] 0.3 mg/0.3 mL auto-injector 0.3 mg IM Q4H PRN (Reason: anaphylaxis) Qty: 2 0RF Continued acetaminophen 500 mg tablet 500 mg PO QID PRN (Reason: fever or pain) Qty: 20 0RF docusate sodium 100 mg capsule 1 cap PO BID Discontinued amlodipine-benazepril 10-40 mg capsule 1 cap PO DAILY Discharge Orders: Discharge Order (Routine); Ordered 01/13/23 Ordered By: Zaid Gomez Diet: Advance to usual diet Activity on Discharge: As tolerated Stand Alone Forms: Patient Portal Discharge page Care Plan Goals: Patient was admitted due to possible angioedema-swelling of lips-given steroids, Benadryl: Seems to be improved significantly,?He denies fever, chills, chest discomfort, palpitations, shortness of breath, abdominal pain, changes in urinary or bowel habits. Patient improved significantly, going home with p.o. steroids, Benadryl, EpiPen. Hypertension: patient's benzapril discontinued due to above angioedema, continue amlodipine, so far blood pressure seems to be controlled. Patient was advised to monitor blood pressure out patiently and follow-up with PCP for further management. Health Concerns: As above. Plan of Treatment: As above. Assessment: As above. Patient Instructions: Angioedema (ED)
--- NOTE | 2023-01-13 10:17 | MHC.CM.PN ---
Patient has been medically cleared for dc to home today, self care.
[2023-01-13 10:25] VITALS: BP 117/72; PULSE 84; RESP 16; TEMP 36.6; O2SAT 98
--- NOTE | 2023-01-13 10:25 | PC.NURSE ---
CONTINUES WITHOUT ANGIOEDEMA PLAN IS FOR DISCHARGE THIS AFTERNOON. VSS.
== END 2023-01-13 11:42 | disposition home or self-care (01) ==
LOC: HO.ED 22:53 → HO.EDOVER 22:57
PROVIDERS: Admitting Provider Student in an Organized Health Care Education/Training Program; Emergency Provider Emergency Medicine; Visit Provider Internal Medicine
DX: T78.3XXA Angioneurotic edema, initial encounter (principal); T46.4X5A Adverse effect of angiotensin-converting-enzyme inhibitors, initial encounter; R22.0 Localized swelling, mass and lump, head; Y92.9 Unspecified place or not applicable; Z20.822 Contact with and (suspected) exposure to COVID-19
CPT/HCPCS: 36415; 80048; 85025; 87635; 96372; 96374; 96375; 96376; 99222; 99284; J1200; J1650; J2930

== ENCOUNTER 2023-01-21 19:27 | Emergency (ER) | payer MEDICARE, MEDICAID, SELFPAY ==
--- NOTE | ~2023-01-21 | XR_ITS ---
EXAMINATION: XR CHEST CLINICAL INFORMATION: Right-sided chest pain COMPARISON: Chest x-ray on 07/13/2021 TECHNIQUE: 2 views of the chest were obtained. FINDINGS: No significant abnormality is noted involving the heart, lungs, mediastinum, bony thorax or soft tissues. XR/XR chest 2V IMPRESSION: Unremarkable examination.
[2023-01-21 19:32] VITALS: BP 158/91; PULSE 87; RESP 18; TEMP 36.5; O2SAT 98; BMI 23.3
--- NOTE | 2023-01-21 19:32 | ED_ITS ---
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 Patient states that he is had the pain b efore but it will usually stop. His pain started this afternoon at 16:00 and he reports being asymptomatic at this time. <Layla Salazar MD - Last Filed: 01/22/23 00:50> Related Data Home Medications: Home Medications Medication Instructions Recorded Confirmed docusate sodium 100 mg capsule 1 cap PO BID 01/13/23 01/13/23 Previous Rx's Medication Instructions Recorded acetaminophen 500 mg tablet 500 mg PO QID PRN fever or pain 07/13/21 #20 tabs amlodipine 10 mg tablet (Norvasc) 10 mg PO DAILY #30 tabs 01/13/23 diphenhydramine HCl 25 mg capsule 25 mg PO TID PRN allergy symptoms 01/13/23 (Benadryl) #6 caps epinephrine 0.3 mg/0.3 mL 0.3 mg (0.3 mL) IM Q4H PRN 01/13/23 injection, auto-injector (EpiPen) anaphylaxis #2 ea prednisone 20 mg tablet 20 mg PO DAILY #2 tabs 01/13/23 omeprazole 40 mg capsule,delayed 40 mg PO DAILY #30 caps 01/22/23 release <RANJAN Smith - Last Filed: 01/21/23 19:37> Allergies/Adverse Reactions: Allergies Allergy/AdvReac Type Severity Reaction Status Date / Time RENA Inhibitors AdvReac Severe Angioedema Verified 01/21/23 19:32 <RANJAN Smith - Last Filed: 01/21/23 19:37> Review of Systems Review of Systems: Pertinent positives and negatives as stated in HPI <Layla Salazar MD - Last Filed: 01/22/23 00:50> PMFSH Past Medical History Source: nursing notes reviewed <Layla Salazar MD - Last Filed: 01/22/23 00:50> Medical History: Medical History Hypertension <RANJAN Smith - Last Filed: 01/21/23 19:37> Social History Social History: Social History Patient Tobacco Use Status: Never used Tobacco Advance Directives: No Advance Directives Information Provided: No <RANJAN Smith - Last Filed: 01/21/23 19:37> Physical Exam Vital Signs: Vital Signs: Last Vital Signs Temp 97.5 F 01/21/23 22:51 Pulse 77 01/21/23 22:51 Resp 14 01/21/23 22:51 BP 120/87 01/21/23 22:51 Pulse Ox 95 01/21/23 22:51 O2 Del Method 01/21/23 22:51 BMI result Body Mass Index 23.3 <RANJAN Smith - Last Filed: 01/21/23 19:37> Vital Signs: Last Vital Signs Temp 97.5 F 01/21/23 22:51 Pulse 77 01/21/23 22:51 Resp 14 01/21/23 22:51 BP 120/87 01/21/23 22:51 Pulse Ox 95 01/21/23 22:51 O2 Del Method 01/21/23 22:51 BMI result Body Mass Index 23.3 VITAL SIGNS: Reviewed. GENERAL: Well developed, well nourished, in no acute distress. HEAD: Normocephalic/atraumatic EYES: PERRLA, EOMI LUNGS: Normal breath sounds. No adventitious sounds or accessory muscle use. SpO2<95> CARDIOVASCULAR: Regular rate and rhythm without noted murmurs ABDOMEN: Soft, non-tender, non-distended with bowel sounds. MUSCULOSKELETAL: No tenderness, deformities, or effusions noted on gross inspection. EXTREMITIES: No cyanosis, clubbing or edema. SKIN: Inspection of the skin reveals no rashes NEUROLOGIC: Alert and oriented x 4. Strength and sensation to light touch were grossly intact x 4. <Layla Salazar MD - Last Filed: 01/22/23 00:50> Course Course Course Narrative: RME - 67 y/o Ukrainian speaking male with history of HTN, recently admitted here from RENA inhibitor induced angioedema who presents to the ER for evaluation constant, right sided chest pain and tightness that radiates up into his throat & neck that started 1.5 hours ago. No associated SOB, nausea, diaphoresis. Pain waxes and wanes. At its worst pain is 10/10. VSS in triage. Will check EKG, CXR, and lab workup. To go for EKG now. <RANJAN Smith - Last Filed: 01/21/23 19:37> Medications Administered Discontinued Medications Generic Name Dose Route Start Last Admin Trade Name Freq PRN Reason Stop Dose Admin Acetaminophen 975 mg 01/22/23 00:19 01/22/23 00:33 Acetaminophen 325 Mg Tablet PO 01/22/23 00:20 975 mg ONCE ONE Administration Al Hydroxide/Mg Hydroxide 30 ml 01/22/23 00:19 01/22/23 00:32 Magnesium Hydrox/Alum Hydrox 30 Ml Oral.Susp PO 01/22/23 00:20 30 ml ONCE ONE Administration Ibuprofen 400 mg 01/22/23 00:19 01/22/23 00:33 Ibuprofen 400 Mg Tablet PO 01/22/23 00:20 400 mg ONCE ONE Administration Lidocaine HCl 10 ml 01/22/23 00:19 01/22/23 00:32 Lidocaine Hcl Viscous 2 % 15 Ml Solution MUCOUS MEM 01/22/23 00:20 10 ml ONCE ONE Administration <RANJAN Smith - Last Filed: 01/21/23 19:37> Medications Administered Discontinued Medications Generic Name Dose Route Start Last Admin Trade Name Freq PRN Reason Stop Dose Admin Acetaminophen 975 mg 01/22/23 00:19 01/22/23 00:33 Acetaminophen 325 Mg Tablet PO 01/22/23 00:20 975 mg ONCE ONE Administration Al Hydroxide/Mg Hydroxide 30 ml 01/22/23 00:19 01/22/23 00:32 Magnesium Hydrox/Alum Hydrox 30 Ml Oral.Susp PO 01/22/23 00:20 30 ml ONCE ONE Administration Ibuprofen 400 mg 01/22/23 00:19 01/22/23 00:33 Ibuprofen 400 Mg Tablet PO 01/22/23 00:20 400 mg ONCE ONE Administration Lidocaine HCl 10 ml 01/22/23 00:19 01/22/23 00:32 Lidocaine Hcl Viscous 2 % 15 Ml Solution MUCOUS MEM 01/22/23 00:20 10 ml ONCE ONE Administration <Layla Salazar MD - Last Filed: 01/22/23 00:50> Medical Decision Making Medical Decision Making [facility] Narrative: 67-year-old male with atypical chest pain and on review of all investigations apparently was seen here on 01/12 for angioedema secondary to lisinopril and was discharged the next day on Norvasc and prednisone. I suspect that patient has a component of gastritis/acid reflux and will provide the patient with a GI cocktail as well as combination analgesics. He is otherwise hemodynamically stable and I have reviewed all investigations and my interpretation is in the absence findings on chest x-ray/troponin/EKG and given the character this is consistent with a gastritis acid reflux. <Layla Salazar MD - Last Filed: 01/22/23 00:50> Differential Diagnosis Differential Diagnoses: The differential diagnosis associated with the presentation includes <Layla Salazar MD - Last Filed: 01/22/23 00:50> Please see the discussion above <Layla Salazar MD - Last Filed: 01/22/23 00:50> Lab Data [facility] Lab Attestation statement: I reviewed the patient's lab results. <Layla Salazar MD - Last Filed: 00:50> Please see the discussion above <Layla Salazar MD - Last Filed: 01/22/23 00:50> Result Diagrams: 01/21/23 19:53 01/21/23 19:53 <RANJAN Smith - Last Filed: 01/21/23 19:37> Labs: Lab Results 01/21/23 01/21/23 01/21/23 Range/Units 19:53 19:53 19:53 WBC 7.9 (4.8-10.8) X10*3/uL RBC 4.33 L (4.60-5.80) X10*6/uL Hgb 13.2 L (14.0-18.0) g/dl Hct 39.9 L (42.0-52.0) % MCV 92.1 (80.0-98.0) fL MCH 30.5 (27.0-33.0) pg MCHC 33.1 (31.0-36.0) g/dl RDW 12.9 (11.0-16.0) % Plt Count 281 (160-400) X10*3/uL MPV 8.9 L (9.4-12.4) fL Immature Gran % (Auto) 0.5 H (0.0-0.4) % Neut % (Auto) 51.1 (45-73) % Lymph % (Auto) 33.0 (20-40) % Wallace % (Auto) 10.9 (2-11) % Eos % (Auto) 3.9 (0-4) % Baso % (Auto) 0.6 (0-2) % Lymph # (Auto) 2.6 (1.2-4.9) X10*3/uL Wallace # (Auto) 0.9 (0.1-1.2) X10*3/uL Eos # (Auto) 0.3 (0.0-0.4) X10*3/uL Baso # (Auto) 0.1 (0.0-0.2) X10*3/uL Abs Immat Gran (auto) 0.04 H (0.00-0.03) X10*3/uL Absolute Neuts (auto) 4.0 (2.0-8.3) x10*3/uL Absolute Nucleated RBC 0.000 (0.0-0.012) X10*3/uL Nucleated RBC % (auto) 0.0 (0.0-0.2) /100WBC Sodium 142 (135-145) mmol/L Potassium 4.5 (3.3-5.1) mmol/L Chloride 107 (96-108) mmol/L Carbon Dioxide 28 (22-29) mmol/L Anion Gap 12 (12-20) BUN 22 H (9-16) mg/dL Creatinine 1.52 H (0.5-1.4) mg/dL Estim Creat Clear Calc 45.2 Estimated GFR 46 Random Glucose 103 (60-115) mg/dL Calcium 9.6 (8.4-10.2) mg/dL Magnesium 2.1 (1.6-2.6) mg/dL Total Bilirubin 0.5 (0.0-1.0) mg/dL Direct Bilirubin < 0.2 (0.0-0.5) mg/dL AST 15 (5-37) U/L ALT 13 (0-40) U/L Alkaline Phosphatase 71 (39-117) U/L Troponin I High Sens (<3.5-35.0) ng/L Total Protein 7.1 (6.5-8.0) g/dL Albumin 3.8 (3.5-5.0) g/dL COVID-19 (DAVID) Negative (Negative) COVID-19 Clin Com See Note 01/21/23 01/22/23 Range/Units 19:53 00:20 WBC (4.8-10.8) X10*3/uL RBC (4.60-5.80) X10*6/uL Hgb (14.0-18.0) g/dl Hct (42.0-52.0) % MCV (80.0-98.0) fL MCH (27.0-33.0) pg MCHC (31.0-36.0) g/dl RDW (11.0-16.0) % Plt Count (160-400) X10*3/uL MPV (9.4-12.4) fL Immature Gran % (Auto) (0.0-0.4) % Neut % (Auto) (45-73) % Lymph % (Auto) (20-40) % Wallace % (Auto) (2-11) % Eos % (Auto) (0-4) % Baso % (Auto) (0-2) % Lymph # (Auto) (1.2-4.9) X10*3/uL Wallace # (Auto) (0.1-1.2) X10*3/uL Eos # (Auto) (0.0-0.4) X10*3/uL Baso # (Auto) (0.0-0.2) X10*3/uL Abs Immat Gran (auto) (0.00-0.03) X10*3/uL Absolute Neuts (auto) (2.0-8.3) x10*3/uL Absolute Nucleated RBC (0.0-0.012) X10*3/uL Nucleated RBC % (auto) (0.0-0.2) /100WBC Sodium (135-145) mmol/L Potassium (3.3-5.1) mmol/L Chloride (96-108) mmol/L Carbon Dioxide (22-29) mmol/L Anion Gap (12-20) BUN (9-16) mg/dL Creatinine (0.5-1.4) mg/dL Estim Creat Clear Calc Estimated GFR Random Glucose (60-115) mg/dL Calcium (8.4-10.2) mg/dL Magnesium (1.6-2.6) mg/dL Total Bilirubin (0.0-1.0) mg/dL Direct Bilirubin (0.0-0.5) mg/dL AST (5-37) U/L ALT (0-40) U/L Alkaline Phosphatase (39-117) U/L Troponin I High Sens < 3.5 < 3.5 (<3.5-35.0) ng/L Total Protein (6.5-8.0) g/dL Albumin (3.5-5.0) g/dL COVID-19 (DAVID) (Negative) COVID-19 Clin Com <RANJAN Smith - Last Filed: 01/21/23 19:37> Lab Results 01/21/23 01/21/23 01/21/23 Range/Units 19:53 19:53 19:53 WBC 7.9 (4.8-10.8) X10*3/uL RBC 4.33 L (4.60-5.80) X10*6/uL Hgb 13.2 L (14.0-18.0) g/dl Hct 39.9 L (42.0-52.0) % MCV 92.1 (80.0-98.0) fL MCH 30.5 (27.0-33.0) pg MCHC 33.1 (31.0-36.0) g/dl RDW 12.9 (11.0-16.0) % Plt Count 281 (160-400) X10*3/uL MPV 8.9 L (9.4-12.4) fL Immature Gran % (Auto) 0.5 H (0.0-0.4) % Neut % (Auto) 51.1 (45-73) % Lymph % (Auto) 33.0 (20-40) % Wallace % (Auto) 10.9 (2-11) % Eos % (Auto) 3.9 (0-4) % Baso % (Auto) 0.6 (0-2) % Lymph # (Auto) 2.6 (1.2-4.9) X10*3/uL Wallace # (Auto) 0.9 (0.1-1.2) X10*3/uL Eos # (Auto) 0.3 (0.0-0.4) X10*3/uL Baso # (Auto) 0.1 (0.0-0.2) X10*3/uL Abs Immat Gran (auto) 0.04 H (0.00-0.03) X10*3/uL Absolute Neuts (auto) 4.0 (2.0-8.3) x10*3/uL Absolute Nucleated RBC 0.000 (0.0-0.012) X10*3/uL Nucleated RBC % (auto) 0.0 (0.0-0.2) /100WBC Sodium 142 (135-145) mmol/L Potassium 4.5 (3.3-5.1) mmol/L Chloride 107 (96-108) mmol/L Carbon Dioxide 28 (22-29) mmol/L Anion Gap 12 (12-20) BUN 22 H (9-16) mg/dL Creatinine 1.52 H (0.5-1.4) mg/dL Estim Creat Clear Calc 45.2 Estimated GFR 46 Random Glucose 103 (60-115) mg/dL Calcium 9.6 (8.4-10.2) mg/dL Magnesium 2.1 (1.6-2.6) mg/dL Total Bilirubin 0.5 (0.0-1.0) mg/dL Direct Bilirubin < 0.2 (0.0-0.5) mg/dL AST 15 (5-37) U/L ALT 13 (0-40) U/L Alkaline Phosphatase 71 (39-117) U/L Troponin I High Sens (<3.5-35.0) ng/L Total Protein 7.1 (6.5-8.0) g/dL Albumin 3.8 (3.5-5.0) g/dL COVID-19 (DAVID) Negative (Negative) COVID-19 Clin Com See Note 01/21/23 01/22/23 Range/Units 19:53 00:20 WBC (4.8-10.8) X10*3/uL RBC (4.60-5.80) X10*6/uL Hgb (14.0-18.0) g/dl Hct (42.0-52.0) % MCV (80.0-98.0) fL MCH (27.0-33.0) pg MCHC (31.0-36.0) g/dl RDW (11.0-16.0) % Plt Count (160-400) X10*3/uL MPV (9.4-12.4) fL Immature Gran % (Auto) (0.0-0.4) % Neut % (Auto) (45-73) % Lymph % (Auto) (20-40) % Wallace % (Auto) (2-11) % Eos % (Auto) (0-4) % Baso % (Auto) (0-2) % Lymph # (Auto) (1.2-4.9) X10*3/uL Wallace # (Auto) (0.1-1.2) X10*3/uL Eos # (Auto) (0.0-0.4) X10*3/uL Baso # (Auto) (0.0-0.2) X10*3/uL Abs Immat Gran (auto) (0.00-0.03) X10*3/uL Absolute Neuts (auto) (2.0-8.3) x10*3/uL Absolute Nucleated RBC (0.0-0.012) X10*3/uL Nucleated RBC % (auto) (0.0-0.2) /100WBC Sodium (135-145) mmol/L Potassium (3.3-5.1) mmol/L Chloride (96-108) mmol/L Carbon Dioxide (22-29) mmol/L Anion Gap (12-20) BUN (9-16) mg/dL Creatinine (0.5-1.4) mg/dL Estim Creat Clear Calc Estimated GFR Random Glucose (60-115) mg/dL Calcium (8.4-10.2) mg/dL Magnesium (1.6-2.6) mg/dL Total Bilirubin (0.0-1.0) mg/dL Direct Bilirubin (0.0-0.5) mg/dL AST (5-37) U/L ALT (0-40) U/L Alkaline Phosphatase (39-117) U/L Troponin I High Sens < 3.5 < 3.5 (<3.5-35.0) ng/L Total Protein (6.5-8.0) g/dL Albumin (3.5-5.0) g/dL COVID-19 (DAVID) (Negative) COVID-19 Clin Com <Layla Salazar MD - Last Filed: 01/22/23 00:50> Independent Interpretation I performed an independent interpretation of an: EKG <Layla Salazar MD - Last Filed: 01/22/23 00:50> Interpretation: Normal sinus rhythm, HR-85, no STEMI, MS/QRS/QTC are within normal limits. <Layla Salazar MD - Last Filed: 01/22/23 00:50> Radiology Impression Radiologist Impression: My interpretation is in agreement with radiology's impression of the imaging study. <Layla Salazar MD - Last Filed: 01/22/23 00:50> External Record Review External record reviewed: Inpatient record, Outpatient record and Prior outpatient labs <Layla Salazar MD - Last Filed: 01/22/23 00:50> Chronic Conditions Patient?s care impacted by: Hypertension <Layla Salazar MD - Last Filed: 01/22/23 00:50> Critical Care Time Critical Care Time Critical Care Time: Yes <Layla Salazar MD - Last Filed: 01/22/23 00:50> Total Critical Care Time: 30 <Layla Salazar MD - Last Filed: 01/22/23 00:50> Attestation: I personally attest to this time spent taking care of the patient. <Layla Salazar MD - Last Filed: 01/22/23 00:50> Discharge Plan Discharge Clinical Impression: Atypical chest pain, GERD (gastroesophageal reflux disease) <RANJAN Smith - Last Filed: 01/21/23 19:37> Patient Disposition: Home, Self-Care <RANJAN Smith Last Filed: 01/21/23 19:37> Instructions: Diet for Stomach Ulcers and Gastritis (ED), Gastroesophageal Reflux Disease (ED) <RANJAN Smith Last Filed: 01/21/23 19:37> Additional Instructions: 1. Reanudar todos los medicamentos caseros seg?n lo prescrito. Te comenc? con un medicamento para controlar el ?cido. 2. Llame ma?cheyanne al consultorio de un proveedor de atenci?n primaria para programar evelyn brittney para evelyn reevaluaci?n y un manejo ambulatorio adicional. Regrese a la joo de emergencias por cualquier empeoramiento o s?ntomas nuevos. 1. Resume all home medications as prescribed. I have started you on a medication for acid control. 2. Please call the office of a primary care provider tomorrow to set up an appointment for re-evaluation and further outpatient management. Return to the ER for any worsening or new symptoms. <RANJAN Smith Last Filed: 01/21/23 19:37> Prescriptions: New omeprazole 40 mg capsule,delayed release(DR/EC) 40 mg PO DAILY Qty: 30 0RF No Action acetaminophen 500 mg tablet 500 mg PO QID PRN (Reason: fever or pain) Qty: 20 0RF docusate sodium 100 mg capsule 1 cap PO BID amlodipine [Norvasc] 10 mg tablet 10 mg PO DAILY Qty: 30 0RF prednisone 20 mg tablet 20 mg PO DAILY Qty: 2 0RF diphenhydramine HCl [Benadryl] 25 mg capsule 25 mg PO TID PRN (Reason: allergy symptoms) Qty: 6 0RF epinephrine [EpiPen] 0.3 mg/0.3 mL auto-injector 0.3 mg IM Q4H PRN (Reason: anaphylaxis) Qty: 2 0RF <RANJAN mSith Last Filed: 01/21/23 19:37> Print Language: Ukrainian <RANJAN Smith Last Filed: 01/21/23 19:37>
--- NOTE | 2023-01-21 19:34 | ECG_ITS ---
Test Reason : CHEST PAIN Blood Pressure : / mmHG Vent. Rate : 085 BPM Atrial Rate : 085 BPM P-R Int : 140 ms QRS Dur : 092 ms QT Int : 338 ms P-R-T Axes : 057 015 027 degrees QTc Int : 402 ms Normal sinus rhythm Normal ECG When compared with ECG of 21-MAY-2022 16:28, No significant change was found Referred By: Shelly Khan Electronically Signed By:RADHA CUELLAR
[2023-01-21 19:59] LABS: MANUAL DIFF FLAG NO
[2023-01-21 20:05] LABS: Basophils Absolute Auto 0.1 X10*3/uL (0.0-0.2); Basophils Percent Auto 0.6 % (0-2); Eosinophils Absolute Auto 0.3 X10*3/uL (0.0-0.4); Eosinophils Percent Auto 3.9 % (0-4); Hematocrit 39.9 % (42.0-52.0); Hemoglobin 13.2 g/dl (14.0-18.0); Imm Gran Abs Auto 0.04 X10*3/uL (0.00-0.03); Imm Gran Pct Auto 0.5 % (0.0-0.4); Lymphocytes Absolute Auto 2.6 X10*3/uL (1.2-4.9); Mean Corpuscular HGB Conc 33.1 g/dl (31.0-36.0); Mean Corpuscular Hemoglobin 30.5 pg (27.0-33.0); Mean Corpuscular Volume 92.1 fL (80.0-98.0); Mean Platelet Volume 8.9 fL (9.4-12.4); Monocytes Absolute Auto 0.9 X10*3/uL (0.1-1.2); Monocytes Percent Auto 10.9 % (2-11); Neutrophils Percent Auto 51.1 % (45-73); Platelet Count 281 X10*3/uL (160-400); Red Blood Count 4.33 X10*6/uL (4.60-5.80); Red Cell Distribution Width 12.9 % (11.0-16.0); White Blood Count 7.9 X10*3/uL (4.8-10.8)
[2023-01-21 20:16] LABS: Alanine Aminotransferase 13 U/L (0-40); Albumin Level 3.8 g/dL (3.5-5.0); Alkaline Phosphatase 71 U/L (39-117); Anion Gap 12 (12-20); Aspartate Amino Transferase 15 U/L (5-37); Bilirubin Direct < 0.2 mg/dL (0.0-0.5); Bilirubin Total 0.5 mg/dL (0.0-1.0); Blood Urea Nitrogen 22 mg/dL (9-16); Calcium 9.6 mg/dL (8.4-10.2); Carbon Dioxide 28 mmol/L (22-29); Chloride 107 mmol/L (96-108); Creatinine Clr Calc Pharmacy 45.2; Estimated Glomerular Filt Rate 46; Glucose Random 103 mg/dL (60-115); Magnesium 2.1 mg/dL (1.6-2.6); Potassium 4.5 mmol/L (3.3-5.1); Sodium 142 mmol/L (135-145); Total Protein 7.1 g/dL (6.5-8.0)
[2023-01-21 20:19] LABS: COVID-19 Test Negative (Negative); IDNOW Serial# 16C4AD1C
[2023-01-21 20:28] LABS: Troponin-I High Sensitivity < 3.5 ng/L (<3.5-35.0)
[2023-01-21 22:51] VITALS: BP 120/87; PULSE 77; RESP 14; TEMP 36.4; O2SAT 95
[2023-01-22] MEDS: Magnesium Hydrox/Alum Hydrox 30 ML ORAL.SUSP PO (00:32)
[2023-01-22] MEDS: Lidocaine HCl Viscous 2 % 15 ML SOLUTION 10 ML MUCOUS MEM (00:32)
[2023-01-22] MEDS: Acetaminophen 325 MG TABLET 975 MG PO (00:33)
[2023-01-22] MEDS: Ibuprofen 400 MG TABLET PO (00:33)
[2023-01-22 00:48] LABS: Troponin-I High Sensitivity < 3.5 ng/L (<3.5-35.0)
== END 2023-01-22 01:15 | disposition home or self-care (01) ==
PROVIDERS: Physician Assistant; Emergency Provider Student in an Organized Health Care Education/Training Program
DX: R07.89 Other chest pain (principal); R05.9 Cough, unspecified; K21.9 Gastro-esophageal reflux disease without esophagitis; R50.9 Fever, unspecified; Z20.822 Contact with and (suspected) exposure to COVID-19; Z20.828 Contact with and (suspected) exposure to other viral communicable diseases; Z79.899 Other long term (current) drug therapy
CPT/HCPCS: 36415; 71046; 80048; 80076; 83735; 84484; 85025; 87635; 93005; 99283; 99284

== ENCOUNTER → 2023-02-09 12:54 | Outpatient (BNVA) | payer MEDICARE, MEDICAID, SELFPAY | PROVIDERS: PCP Internal Medicine; Referring Provider General Practice; Visit Provider Surgery | DX: K40.90 Unilateral inguinal hernia, without obstruction or gangrene, not specified as recurrent (principal) | CPT/HCPCS: 99202 ==

== ENCOUNTER 2023-02-13 09:42 | Day surgery (SDC) | payer MEDICARE, MEDICAID, SELFPAY ==
--- NOTE | 2023-02-12 12:59 | HO.ANESPROP2 ---
Documented by User: Dalila Jean NP 02/12/23 13:02 HPI - Anesthesia Eval Consult details Narrative: 67yo M for Right Hernia Repair Inguinal with mesh 01/12 C with angioedema r/t RENA inhibitor 01/22 C with atypical CP r/t GERD PMFSH Active Problems Active Problems: All Active Problems (Updated 02/09/23 @ 13:14 by KAYLYNN Suarez) Right inguinal hernia (Acute) Angioedema (Acute) COVID-19 (Acute) Past Medical History Medical History (Updated 02/13/23 @ 10:45 by Kimmy Bella RN) Gastritis Hemorrhoids Herniated disc, cervical Hypertension Family History Family History (Updated 02/09/23 @ 13:13 by KAYLYNN Suarez) Mother Liver disease Father Epilepsy Social History Social History (Updated 02/09/23 @ 13:10 by KAYLYNN Suarez) Alcohol intake: former Patient Tobacco Use Status: Never used Tobacco Use of substances other than those prescribed or required for medical reasons: No Are you DNR?: No Advance Directives: No Advance Directives Information Provided: Yes Recently lost weight without trying: No Nutrition Risks: No Nutritional Risk Meds Allergies Allergy/AdvReac Type Severity Reaction Status Date / Time RENA Inhibitors AdvReac Severe Angioedema Verified 02/09/23 13:07 Home Medications Medication Instructions Recorded Confirmed Last Taken Type docusate sodium 100 mg capsule 1 cap PO BID 01/13/23 02/13/23 Unknown History Exam Exam Date and Time: February 12, 2023 1259 Pertinent Lab Results Pertinent Lab Results: Laboratory Tests 01/21/23 01/21/23 19:53 19:53 WBC 7.9 Hgb 13.2 L Hct 39.9 L Plt Count 281 Sodium 142 Potassium 4.5 Chloride 107 Carbon Dioxide 28 BUN 22 H Creatinine 1.52 H Narrative Narrative: EKG 12/2022 Vent. Rate : 085 BPM ? ? Atrial Rate : 085 BPM ?? P-R Int : 140 ms? QRS Dur : 092 ms ? ? QT Int : 338 ms ? ? ? P-R-T Axes : 057 015 027 degrees ?? QTc Int : 402 ms ? Normal sinus rhythm Normal ECG When compared with ECG of 21-MAY-2022 16:28, No significant change was found Assessment and Plan Assessment Anesthesia Assessment: Chart Reviewed Documented by User: Deidra Adams MD 02/13/23 15:10 PMFSH Past Medical History Medical History (Updated 02/13/23 @ 10:45 by Kimmy Bella RN) Gastritis Hemorrhoids Herniated disc, cervical Hypertension Family History Family History (Updated 02/09/23 @ 13:13 by KAYLYNN Suarez) Mother Liver disease Father Epilepsy Family history of problems with anesthesia: No Surgical History History of Problems with Anesthesia: No Social History Social History (Updated 02/09/23 @ 13:10 by KAYLYNN Suarez) Alcohol intake: former Patient Tobacco Use Status: Never used Tobacco Use of substances other than those prescribed or required for medical reasons: No Are you DNR?: No Advance Directives: No Advance Directives Information Provided: Yes Recently lost weight without trying: No Nutrition Risks: No Nutritional Risk Meds Allergies Allergy/AdvReac Type Severity Reaction Status Date / Time RENA Inhibitors AdvReac Severe Angioedema Verified 02/09/23 13:07 Home Medications Medication Instructions Recorded Confirmed Last Taken Type docusate sodium 100 mg capsule 1 cap PO BID 01/13/23 02/13/23 Unknown History Exam Airway Mallampati Class: II TM Dist: >3cm Neck ROM: Full Heart: rr Lungs: cta Assessment and Plan Final Anesthetic Review Family History of Problems with Anesthesia: No History of Problems with Anesthesia: No ASA Class: II Final Preanesthetic Review: No Changes in Pt Med Stat, Meds/Allgs Chart Reviewed, Consent Obtained/Reviewed and Anes Risks/Benef Reviewed Patient Risk: Low Procedure Risk: Low Anesthetic Plan Anesthetic Plan: GA Disposition: Standard PACU
[2023-02-13] VITALS (9 sets, daily range): BP systolic 92–137; BP diastolic 65–81; PULSE 62–77; RESP 13–18; TEMP 36.2–36.8; O2SAT 98–100; BMI 23.1
[2023-02-13] MEDS: Lactated Ringers 1,000 ML 100 ML IVCONT (11:04)
--- NOTE | 2023-02-13 14:51 | W.PM.OPN ---
Operative Note Operative Note Date of Service: 02/13/23 Narrative: Preoperative diagnosis: [] right inguinal hernia Postop diagnosis: [] right inguinal hernia Surgeon: [] Anthony Ironing Machine Operator: [] Kulwinder Type of Anesthesia: [] general Indication for surgery: [] symptomatic right inguinal hernia Findings: [] large indirect hernia sac. no direct hernia was demonstrated. No femoral hernia was demonstrated Procedure: [] patient was brought to the operating room, placed on the operating room table in the supine position, and after an adequate level of general anesthesia was induced, the right groin was prepped and draped in usual sterile fashion. Using a small right para-Inguinal incision, this is carried down through skin, subcutaneous tissue, and Azalia's fascia. External oblique fibers were open and there direction with care to isolate and preserve the ilioinguinal nerve throughout the procedure. Spermatic cord was identified and retracted from the field. No direct hernia was demonstrated. A moderately sized indirect hernia sac was identified and from the spermatic cord. the indirect hernia sac was reduced. A medium hernia plug was placed in the indirect defect and sutured inferiorly to the inguinal ligament and superiorly to the transversalis fascia using 2-0 taken sutures. This also covered adequately the inguinal floor. A completion of the procedure, the wound was irrigated, secured hemostasis, and closed in the following manner; external the fascia was reapproximated using running 2-0 Vicryl suture. Azalia's fascia was closed using interrupted 3-0 Vicryl sutures. Interrupted inverted subdermal 3-0 Vicryl sutures followed by running subcuticular 4-0 Vicryl sutures were placed. Steri strips and dressings were applied. Wound was infiltrated 0.5 Marcaine at completion. Ipsi-lateral testicle was intrascrotal at completion of the procedure. Sponge, needle, and instrument counts were reported to be correct. Patient tolerated the procedure well and emerged from anesthesia in stable condition. Estimated blood loss 0.
== END 2023-02-13 17:20 | disposition home or self-care (01) ==
PROVIDERS: Visit Provider Surgery
PROC: (CPT 49505; principal; 2023-02-13 12:40)
DX: K40.90 Unilateral inguinal hernia, without obstruction or gangrene, not specified as recurrent (principal); I10 Essential (primary) hypertension; Z79.899 Other long term (current) drug therapy; Z88.8 Allergy status to other drugs, medicaments and biological substances
CPT/HCPCS: 49505; C1781; J0690; J2250; J2405; J2795; J3010

== ENCOUNTER → 2023-02-25 10:29 | Outpatient (BNVA) | payer MEDICARE, MEDICAID, SELFPAY | PROVIDERS: Visit Provider Surgery ==

== ENCOUNTER 2023-07-15 21:49 | Emergency (ER) | payer MEDICARE, SELFPAY ==
--- NOTE | 2023-07-15 22:03 | ECG_ITS ---
Test Reason : sob Blood Pressure : / mmHG Vent. Rate : 072 BPM Atrial Rate : 072 BPM P-R Int : 166 ms QRS Dur : 098 ms QT Int : 376 ms P-R-T Axes : 054 008 027 degrees QTc Int : 411 ms Normal sinus rhythm with sinus arrhythmia Normal ECG When compared with ECG of 21-JAN-2023 19:47, No significant change was found Referred By: Generic ED Physician Electronically Signed By:HOA LANDA
[2023-07-15 22:20] VITALS: BP 137/83; PULSE 70; RESP 16; TEMP 37.1; O2SAT 98; BMI 25.1
== END 2023-07-16 01:28 | disposition left against medical advice (07) ==
PROVIDERS: Emergency Provider Emergency Medicine
DX: R06.02 Shortness of breath (principal)
CPT/HCPCS: 93005; 99283

== ENCOUNTER 2023-08-26 11:40 | Outpatient (REF) | payer MEDICARE, MEDICAID, SELFPAY ==
[2023-08-26 13:44] LABS: Appearance Urine Clear; Color Urine Yellow; Glucose Urine UA Negative (Negative); Leukocyte Esterase Urine Trace (Negative); Nitrite Urine Negative (Negative); Specific Gravity - Urine 1.015 (1.005-1.025); UMIC TRIGGER UACC YES; Urine Blood Moderate (2+) (Negative); Urine Ketones Negative (Negative); Urine Protein Negative (Neg-Trace)
[2023-08-26 13:49] LABS: Cholesterol 136 mg/dL (<200); HDL Cholesterol 49 mg/dL (>40); LDL Cholesterol Calculated 71 mg/dL (<100); Triglycerides 82 mg/dL (<150)
[2023-08-26 13:52] LABS: Bacteria Urine None Seen (None Seen); Hyaline Casts Urine 0-2 /LPF (0-2); Squamous Epithelial Cell Urine 0-2 /HPF (0-2); WBC Urine 0-5 /HPF (0-5)
[2023-08-26 14:04] LABS: Prostate Specific Antigen 2.44 ng/mL (<0.05-4.0)
[2023-08-26 14:07] LABS: TSH reflex Free T4 3.62 uIU/mL (0.32-4.0)
== END 2023-08-26 11:41 | disposition home or self-care (01) ==
LOC: HO.HHCL 11:40
PROVIDERS: Visit Provider Registered Nurse
DX: Z12.5 Encounter for screening for malignant neoplasm of prostate (principal); I10 Essential (primary) hypertension; N40.0 Benign prostatic hyperplasia without lower urinary tract symptoms; R13.10 Dysphagia, unspecified
CPT/HCPCS: 36415; 80061; 81001; 84153; 84443

== ENCOUNTER 2023-11-02 09:43 | Outpatient (AMB) | payer MEDICARE, MEDICAID, SELFPAY ==
--- NOTE | 2023-11-02 10:12 | A.OFFVIS_ITS ---
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 He has a past medical history of gastritis, cervical herniated disc, hemorrhoids, and hypertension. He presents to the office today as a new patient for microscopic hematuria. In discussion with the patient today reports to be doing and feeling well. He reports having followed up with his PCP and having annual labs and urine at which time he was noted to have microscopic hematuria and recommendations were made for Urology follow-up for further assessment evaluation. When asked he reports a previous history of prostate procedure in [place]. He reports having had procedure to make his prostate smaller. He currently denies any bothersome urinary issues or concerns. When asked he does report a previous smoking history. He reports having quit over 10 years ago however had been smoking on and off approximately half a pack to 1 pack of cigarettes per day. He denies any known workplace chemical exposure. He denies any family history of prostate and or bladder cancer. He does report a family history of liver cancer. Discussed at length potential causes of microscopic hematuria. Discussed further microscopic hematuria workup versus surveillance monitoring. This was discussed at length. Discussed risks and benefits of surveillance monitoring verses further workup. When asked he denies urinary urgency, urinary frequency, incontinence, nocturia, hematuria, dysuria, foul smelling urine, changes to urinary stream, flank pain, fever, and or chills. He is happy with his current voiding parameters. In office urinalysis with 3+ microscopic hematuria otherwise within normal limits. He otherwise offers no issues or concerns. In review of patient's chart it appears PSA 08/22--2.4. PFSH Medical History Gastritis Herniated disc, cervical Hemorrhoids Hypertension Surgical History History of right inguinal hernia repair (02/13/23) Family History Mother Liver disease Father Epilepsy Social History Alcohol intake: former Patient Tobacco Use Status: Never used Tobacco Review of Systems Const Reports no additional complaints Eyes Reports no additional complaints ENT Reports no additional complaints Card Reports as per HPI Resp Reports no additional complaints GI Reports as per HPI Reports as per HPI Musc Reports as per HPI Neuro Reports no additional complaints Psych Reports no additional complaints Endo Reports no additional complaints Paco/Lymph Reports no additional complaints Aller/Immun Reports no additional complaints Physical Exam Const General: cooperative, healthy appearing, comfortable, no acute distress, well developed, alert and awake Orientation/consciousness: patient oriented x3 Limitations: no limitations HEENT Head: Yes normal to inspection, Yes normocephalic and Yes atraumatic Ears: hearing grossly normal bilaterally Eyes General: appearance normal, both eyes and all related structures Neck Neck: Yes normal visual inspection and Yes trachea midline Chest Chest palpation & inspection: normal inspection of the chest Resp Effort & Inspection: normal respiratory effort and able to speak in complete sentences Cardio Rate: regular rate GI Inspection: Yes normal to inspection General: Yes no CVA tenderness Back/Spine/Pelvis Back: no CVA tenderness Skin General skin exam: no rashes or lesions noted Neuro General: patient oriented x3 Extrem General: Yes normal to inspection Psych Appearance: grossly normal and well kempt Mental Status: mental status grossly normal Speech and movement: Normal speech and movement present and Clear speech present Affect: normal affect Attitude: cooperative Thought process: Normal thought process present Thought content: Normal thought content present Insight: Fair insight present (Psych) Judgement: Fair judgement present (Psych) Results AMB Urinalysis, Automated UA Leukoctes 0 Yasmin/uL Last Edit by Kiana Dudley on 11/02/23 10:34 UA Nitrite Negative Last Edit by Kiana Dudley on 11/02/23 10:34 UA Urobilinogen 0.2 mg/dL Last Edit by Kiana Dudley on 11/02/23 10:34 UA Protein 0 mg/dL Last Edit by Kiana Dudley on 11/02/23 10:34 UA pH 6.0 Last Edit by Kiana Dudley on 11/02/23 10:34 UA Blood 200 Naseem/uL Last Edit by Kiana Dudley on 11/02/23 10:34 UA Specific [place] 1.015 Last Edit by Kiana Dudley on 11/02/23 10:34 UA Ketone Negative Last Edit by Kiana Dudley on 11/02/23 10:34 UA Bilirubin 0 mg/dL Last Edit by Kiana Dudley on 11/02/23 10:34 UA Glucose 0 mg/dL Last Edit by Kiana Dudley on 11/02/23 10:34 Results Reviewed Results Reviewed: Laboratory Last Values Urine pH (Auto) 6.0 11/02/23 10:16 Specific [place] (Auto) 1.015 11/02/23 10:16 Urine Protein (Auto) 0 mg/dL 11/02/23 10:16 Glucose (UA)(Auto) 0 mg/dL 11/02/23 10:16 Urine Ketones (Auto) Negative 11/02/23 10:16 Urine Blood (Auto) 200 Naseem/uL 11/02/23 10:16 Urine Nitrite (Auto) Negative 11/02/23 10:16 Urine Bilirubin (Auto) 0 mg/dL 11/02/23 10:16 Urine Urobilinogen (Auto) 0.2 mg/dL 11/02/23 10:16 Leukocyte Esterase (Auto) 0 Yasmin/uL 11/02/23 10:16 Assessment & Plan Assessment & Plan (1) Microscopic hematuria: Code(s): R31.29 - Other microscopic hematuria (2) History of nicotine dependence: Code(s): Z87.891 - Personal history of nicotine dependence Plan In office urinalysis results reviewed with the patient today; as noted above; will send for urine cytology. Discussed at length potential causes of microscopic hematuria. Discussed surveillance monitoring verses further microscopic hematuria workup with cytology, CT urogram, and in office cystoscopy. Patient denies any bothersome urinary issues or concerns at this time. Will obtain PSA, BUN, and creatinine for further assessment evaluation. Will obtain CT urogram for further assessment evaluation. Patient reports be happy with current voiding parameters. Follow-up in office cystoscopy with imaging and labs to be completed prior; or sooner with any issues, concerns, and or questions. Orders: Orders Blood Urea Nitrogen Today R31.29 - Other microscopic hematuria Creatinine Today R31.29 - Other microscopic hematuria Prostate Specific Antigen Today N40.0 - Benign prostatic hyperplasia without lower urinary tract symptoms Urine Cytology Today Z13.9 - Encounter for screening, unspecified CT urogram Today R31.0 - Gross hematuria AMB Urinalysis Automated Today Z13.9 - Encounter for screening, unspecified Patient Instructions: The patient had an opportunity to ask questions regarding the treatment plan. All questions were answered. Physical exam, labs, and imaging were discussed and reviewed in detail. As well as risks, benefits, and discussion of treatment choices. No major barriers to understanding were identified. The patient expressed understanding and agreement with the above treatment plan. The patient was made aware they should contact our office by phone for worsening of their current condition, the appearance of new symptoms, or with any questions or concerns. Compliance is encouraged with any medications and follow up testing that is ordered. It is a privilege to be allowed the opportunity to participate in? your urological care.? Again, if you have any questions or concerns If you have any questions or concerns please do not hesitate to contact me. The office is [phone]. This note is constructed using voice recognition software. While every effort has been made to ensure accuracy flight radio officer errors may have been included. Yours sincerely, ROBERTA Ventura Coding Level of Care Code New Pt Level 3 (01353) Diagnoses Microscopic hematuria R31.29 History of nicotine dependence Z87.891
== END 2023-11-02 10:49 | disposition home or self-care (01) ==
PROVIDERS: Visit Provider Nurse Practitioner Family
DX: R31.29 Other microscopic hematuria (principal); Z87.891 Personal history of nicotine dependence
CPT/HCPCS: 99203

== ENCOUNTER 2023-11-02 09:43 | Outpatient (REF) | payer MEDICARE, MEDICAID, SELFPAY ==
[2023-11-02 16:22] LABS: Urine Cytology See Pathology rpt
== END 2023-11-02 09:44 | disposition home or self-care (01) ==
LOC: HO.LNP 09:43
PROVIDERS: Visit Provider Nurse Practitioner Family
DX: R31.29 Other microscopic hematuria (principal); Z87.891 Personal history of nicotine dependence
CPT/HCPCS: 81003; 88112; 99202

== ENCOUNTER 2023-12-04 11:27 | Outpatient (REF) | payer MEDICARE, MEDICAID, SELFPAY | END 2023-12-04 11:28 | disposition home or self-care (01) | LOC: HO.HHCX 11:27 | PROVIDERS: Visit Provider Registered Nurse | DX: M25.532 Pain in left wrist (principal) | CPT/HCPCS: 73110 ==

== ENCOUNTER 2023-12-16 10:33 | Outpatient (REF) | payer MEDICARE, MEDICAID, SELFPAY ==
--- NOTE | ~2023-12-16 | CT_ITS ---
EXAMINATION: CT ABDOMEN AND PELVIS WITHOUT AND WITH CONTRAST CLINICAL INFORMATION: Gross hematuria. COMPARISON: 05/10/2018 TECHNIQUE: Noncontrast CT of the abdomen and pelvis is performed followed by split bolus contrast-enhanced images using 85 mL Omnipaque 350 contrast.? Postcontrast imaging is performed during the combined nephrogram and excretion phase. Sagittal and coronal reformatted images were obtained on the technologist's workstation for both the precontrast and postcontrast phases. This CT examination was performed using dose optimization techniques as appropriate, variously including the following: *Automated exposure control *Adjustment of mA and/or kV according to patient size (this includes techniques or standardized protocols for targeted exams where dose is matched to indication/reason for exam; i.e. extremities or head) *Use of iterative reconstruction technique DLP: 880 mGy-cm FINDINGS: LUNG BASES: Small hiatal hernia. LIVER, GALLBLADDER, AND BILIARY TREE: The liver is normal in size and contour. No suspicious hepatic lesion or biliary ductal dilatation is present. The gallbladder is unremarkable with no evidence of radiopaque gallstones, gallbladder wall thickening, or obvious pericholecystic inflammatory changes. PANCREAS: No ductal dilatation. SPLEEN: Chronic granulomatous disease. ADRENAL GLANDS: No adrenal mass. KIDNEYS AND URETERS: The kidneys are symmetric in size and enhancement. No renal or ureteral calculus. No perinephric stranding. Delayed images demonstrate intact renal function. Bilateral collecting systems and opacified portions of the ureters are nondilated. There is possible thickening of the distal right ureter at the ureterovesical junction/ureteral insertion. BLADDER: Underdistended. No bladder calculus. The bladder mostly fills with excreted contrast. No intraluminal filling defects are appreciated. GASTROINTESTINAL TRACT: Small and large bowel loops are of normal caliber. No small bowel obstruction. Appendix is within normal limits. ABDOMINAL WALL: Fat-containing umbilical hernia. LYMPH NODES: No lymphadenopathy. VASCULAR: Normal caliber abdominal aorta. PELVIC VISCERA: Enlarged prostate gland. OSSEUS STRUCTURES: No destructive bone lesions. CT/CT urogram IMPRESSION: There is possible thickening of the distal right ureter at the ureterovesical junction/ureteral insertion. No hydronephrosis. Consider urologic consultation and ureteroscopy.
[2023-12-16] MEDS: iohexoL 350 MG/ML 100 ML INFUS..BTL 85 ML IV (10:59)
[2023-12-16 13:54] LABS: Creatinine POC 0.9 mg/dL (0.5-1.4); GFR POC > 60
== END 2023-12-16 10:34 | disposition home or self-care (01) ==
LOC: HO.CT 10:33
PROVIDERS: Visit Provider Nurse Practitioner Family
DX: R31.0 Gross hematuria (principal)
CPT/HCPCS: 74178; 82565; Q9967

== ENCOUNTER 2024-01-12 09:58 | Outpatient (AMB) | payer MEDICARE, MEDICAID, SELFPAY ==
--- NOTE | 2024-01-12 10:09 | A.OFFVIS_ITS ---
Intake Vital Signs 01/12/24 10:13 Height 5 ft 7 in Weight 169 lb 12.095 oz BMI 26.6 BP 137/67 Blood Pressure Location Lt brachial Position Sitting Pulse 83 Intake Visit Reasons: Colonoscopy Screening Intake Note: Patient presents to in office visit today as a new patient for colonoscopy screening. CC: Patient unsure if he had a colonoscopy done before. He c/o occasional heartburn depending on what he eats. 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 He is referred by [facility]. PMX Allergic rhinitis Hypertension High cholesterol CAD Chronic pain/chronic low back pain LUMBAR HERNIATED DISCS CERVICAL HERNIATED DISC BPH Visual impairment - s/p eye injury in sports left eye vision decreased. Hemorrhoids Depression/anxiety * SURGICAL HISTORY Inguinal hernia repair - rt TURP Colonoscopy with polyps 2years ago @ [facility]. * ALLERGIES RENA inhibitors-angioedema - pt denies * [employer] LABS: Laboratory Tests 01/21/23 01/21/23 12/16/23 19:53 19:53 10:51 WBC 7.9 Hgb 13.2 L Hct 39.9 L MCV 92.1 MCH 30.5 Plt Count 281 POC GFR > 60 Total Bilirubin 0.5 Direct Bilirubin < 0.2 AST 15 ALT 13 Alkaline Phosphata se 71 TODAY'S VISIT [place] #[employer] He says he has intermittent problems with bleeding roids that are at times painful. At times his stools are soft, but he still strains at times. He also seems to have gas trapping. He may have incomplete evacuation as he says I eat a lot but don't produce a lot of stools. He is vague about his fiber intake saying he eats everything. But it sounds like his diet is heavy in meat and rice. He drinks 3 bottles of water a day and coffee, no soda. No upper GI problems No anes or sed problems He is complaining of occasional shortness of breath when sleeping or when crunching forward however he does ride a bike and walk quite a lot and this does not happen with activity. There are no documented cardiac or respiratory problems. There is no known family history because he does not know his family history so it is difficult to assess his cardiac risk. NO ID problems. He had polyps of unknown nature somewhere in [place] (he can't remember) again, he does not know his family history. ON LICENSE OF [facility] Medical History Gastritis Herniated disc, cervical Hemorrhoids Hypertension Surgical History History of prostate surgery H/O inguinal hernia repair History of right inguinal hernia repair (02/13/23) Family History Mother Liver disease Father Epilepsy Social History Alcohol intake: former Patient Tobacco Use Status: Never used Tobacco Review of Systems Const Denies fatigue, Denies fever(s), Denies night sweats, Denies poor appetite and Denies weight loss Eyes Details: left eye poor vision s/p injury Reports requires corrective lenses ENT Details: anosmia Reports Normal hearing present, Denies dental pain, Denies dysphagia, Denies hearing loss, Denies mouth pain, Denies odynophagia, Denies throat swelling, Denies tongue swelling and Reports other (Dentition adequate) Card Reports chest pain at rest Resp Reports no additional complaints GI Details: Denies abdominal pain, Denies melena, Denies bloating, Reports hematochezia, Denies constipation, Denies GI cramping, Denies dysphagia, Denies excessive flatus, Denies early satiety, Denies heartburn, Denies diarrhea, Denies nausea, Denies odynophagia, Denies vomiting and Denies hematemesis Skin/Breast Denies pruritus, Denies lesions, Denies rash and Denies jaundice Neuro Reports Normal hearing present and Denies Abnormal speech present Endo Denies fatigue Aller/Immun Reports seasonal rhinorrhea, Denies throat swelling and Denies tongue swelling Physical Exam Vital Signs: Last Vital Signs Pulse 83 01/12/24 10:13 BP 137/67 01/12/24 10:13 BMI result Body Mass Index 26.6 Const General: cooperative, no acute distress, well developed and well groomed Nutritional Appearance: average body habitus and well nourished Orientation/consciousness: oriented to person, oriented to place and oriented to time Limitations: language barrier and other limitations (illiterate and educational barriers) HEENT Head: Yes normocephalic and Yes atraumatic Eyes General: appearance normal, both eyes and all related structures Pupils: Equal, round and reactive pupils present Neck Neck: Yes normal visual inspection and Yes no lymphadenopathy Thyroid: Thyroid normal Resp Effort & Inspection: normal respiratory effort and able to speak in complete sentences Auscultation: clear to auscultation bilaterally Cardio Rate: regular rate Rhythm: regular rhythm Heart sounds: Normal, physiologic split S2 sound present Peripheral pulses: radial pulses present and posterior tibial pulses present GI Inspection: No distended, No Abdominal panniculus present and Yes visible herniation (mild umbilical) Palpation (GI): Soft to palpation, nontender, no guarding, not rigid and No hepatosplenomegaly present Percussion: Yes normal to percussion Auscultation: normal bowel sounds Rectal Exam - Male: Yes deferred Skin General skin exam: no rashes or lesions noted, turgor normal, skin not dry, no jaundice, No spider nevi and no striae Rashes: no rashes Nails: normal Neuro General: oriented to person, oriented to place and oriented to time Cranial nerves: Yes Equal, round and reactive pupils present and Yes Normal hearing present Speech: No Abnormal speech present Extrem General: Yes normal to inspection, No clubbing, No cyanosis and No edema Psych Appearance: grossly normal and well kempt Mental Status: mental status grossly normal Speech and movement: Normal speech and movement present Affect: normal affect Attitude: cooperative Thought process: Normal thought process present and not confabulating Thought content: Normal thought content present Insight: Limited insight present (Psych) and Poor insight present (Psych) Judgement: Limited judgement present (Psych) and Poor judgement present (Psych) Assessment & Plan Assessment & Plan (1) Pre-op examination: Code(s): Z01.818 - Encounter for other preprocedural examination (2) Chest pain at rest: Code(s): R07.9 - Chest pain, unspecified (3) Anosmia: Code(s): R43.0 - Anosmia (4) Constipation: Code(s): K59.00 - Constipation, unspecified (5) Illiterate: Comment: not in Ch[place] or [place] - dtr helps him Code(s): Z55.0 - Illiteracy and low-level literacy Plan [place] #[employer] He says he has intermittent problems with bleeding roids that are at times painful. At times his stools are soft, but he still strains at times. He also seems to have gas trapping. He may have incomplete evacuation as he says I eat a lot but don't produce a lot of stools. He is vague about his fiber intake saying he eats everything. But it sounds like his diet is heavy in meat and rice. He drinks 3 bottles of water a day and coffee, no soda. No upper GI problems No anes or sed problems He is complaining of occasional shortness of breath when sleeping or when crunching forward however he does ride a bike and walk quite a lot and this does not happen with activity. There are no documented cardiac or respiratory problems. There is no known family history because he does not know his family history so it is difficult to assess his cardiac risk. NO ID problems. He had polyps of unknown nature somewhere in [place] (he can't remember) again, he does not know his family history. He has a doorknob complaint of loss of his sense of smell, referring to ENT. Orders: Orders Colonoscopy - GI Use Only Today ECG 12 lead EKG Today R07.9 - Chest pain, unspecified, Z01.818 - Encounter for other preprocedural examination Referrals Ear/Nose/Throat Referral R43.0 - Anosmia Medications: New peg 3350-electrolytes 236-22.74-6.74 -5.86 gram (Golytely) until fecal effluent is clear; do not exceed a total volume of 2,000 mL 240 mL PO Q10M 1 day 4,000 mL 0RF Z12.11 - Encounter for screening for malignant neoplasm of colon bisacodyl (Dulcolax (bisacodyl)) 10 mg (2 x 5 mg) PO BEDTIME 2 days 4 tabs 0RF psyllium husk (Daily Fiber) 0.4 grams PO BID 60 caps 6RF K59.00 - Constipation, unspecified Coding Level of Care Code New Pt Level 3 (02803) Diagnoses Pre-op examination Z01.818 Chest pain at rest R07.9 Anosmia R43.0 Constipation K59.00 Illiterate Z55.0
[2024-01-12 10:13] VITALS: BP 137/67; PULSE 83; BMI 26.6
== END 2024-01-12 12:38 | disposition home or self-care (01) ==
PROVIDERS: Visit Provider Nurse Practitioner
DX: K59.00 Constipation, unspecified (principal); Z12.11 Encounter for screening for malignant neoplasm of colon; R07.9 Chest pain, unspecified; R43.0 Anosmia; Z55.0 Illiteracy and low-level literacy
CPT/HCPCS: 99203; 99213

== ENCOUNTER → 2024-01-12 09:58 | Outpatient (BNVA) | payer MEDICARE, MEDICAID, SELFPAY | PROVIDERS: Visit Provider Nurse Practitioner | DX: Z01.818 Encounter for other preprocedural examination (principal); R07.9 Chest pain, unspecified; R43.0 Anosmia; K59.00 Constipation, unspecified; Z55.0 Illiteracy and low-level literacy | CPT/HCPCS: 99202 ==

== ENCOUNTER 2024-02-03 14:00 | Outpatient (AMB) | payer MEDICARE, MEDICAID, SELFPAY ==
--- NOTE | 2024-02-03 14:02 | A.OFFVIS_ITS ---
Intake Intake Visit Reasons: cysto/CT/labs Intake Note: Patient presents today for a CYSTOSCOPY Procedure: Meds: None Allergies to Antibiotic: No Known Allergies Blood Thinner: None Urinalysis test clear for Cysto? YES Disposable Uro-G Cystoscope Cannula: Lot: [id number] Exp: 04/12/2025 Assurance Auditor Required: Yes Assurance Auditor Language: Sri Lankan Information Interpreted: non-clinical & clinical Accompanied by: Self / Same As Patient Allergies RENA Inhibitors Adverse Reaction (Severe, Verified 02/03/24 14:04) Angioedema HPI HPI Comments History of Present Illness Details 02/03/24--Abraham is here for office cystosc opy. He was initially evaluated by the Urology nurse practitioner, 11/02/2023 for microscopic hematuria. He was sent for CT urogram. I have reviewed CT scan results, 12/16/2023, there is questionable thickening of the right distal ureter. Office cystoscopy today- Cystoscopy findings: prostatic urethra non obstructive, bulbous urethra WNL, no suspicious bladder lesions visualized. Plan - Cystoscopy, bilateral retrogrades, bladder biopsies. Review of chart: 11/02/23--Abraham is a very pleasant 68-yea r-old [place] Lankan-speaking male patient. He has a past medical history of gastritis, cervical herniated disc, hemorrhoids, and hypertension. He presents to the office today as a new patient for microscopic hematuria. In discussion with the patient today reports to be doing and feeling well. He reports having followed up with his PCP and having annual labs and urine at which time he was noted to have microscopic hematuria and recommendations were made for Urology follow-up for further assessment evaluation. When asked he reports a previous history of prostate procedure in [place]. He reports having had procedure to make his prostate smaller. He currently denies any bothersome urinary issues or concerns. When asked he does report a previous smoking history. He reports having quit over 10 years ago however had been smoking on and off approximately half a pack to 1 pack of cigarettes per day. He denies any known workplace chemical exposure. He denies any family history of prostate and or bladder cancer. He does report a family history of liver cancer. Discussed at length potential causes of microscopic hematuria. Discussed further microscopic hematuria workup versus surveillance monitoring. This was discussed at length. Discussed risks and benefits of surveillance monitoring verses further workup. When asked he denies urinary urgency, urinary frequency, incontinence, nocturia, hematuria, dysuria, foul smelling urine, changes to urinary stream, flank pain, fever, and or chills. He is happy with his current voiding parameters. In office urinalysis with 3+ microscopic hematuria otherwise within normal limits. He otherwise offers no issues or concerns. In review of patient's chart it appears PSA 08/22--2.4. 02/03/24--Plan - Cystoscopy, bilateral ret rogrades, bladder biopsies. [facility] Medical History Gastritis Herniated disc, cervical Hemorrhoids Hypertension Surgical History History of prostate surgery H/O inguinal hernia repair History of right inguinal hernia repair (02/13/23) Family History Mother Liver disease Father Epilepsy Social History Alcohol intake: former Patient Tobacco Use Status: Never used Tobacco Review of Systems Const All systems reviewed & are unremarkable except as noted in HPI and below Reports no additional complaints Eyes Reports no additional complaints ENT Reports no additional complaints Card Reports no additional complaints Resp Reports no additional complaints GI Reports no additional complaints Reports as per HPI Musc Reports no additional complaints Skin/Breast Reports system reviewed and no additional complaints, except as documented Neuro Reports no additional complaints Psych Reports no additional complaints Endo Reports no additional complaints Paco/Lymph Reports no additional complaints Aller/Immun Reports no additional complaints Office Procedures Cystoscopy Consent Discussed risk and benefit or proposed procedure with the patient. Information consent for procedure given to the patient. Discussed technical aspects, risks, benefits and alternatives in full. Addressed all of the patient's questions and concerns regarding the procedure. The patient demonstrated knowledge and understanding. They wish to proceed with this procedure. Preparation The patient was prepped in the usual manner. A information developer was present and in the room. Genitalia was prepped with betadine solution in a sterile manner. Lidocaine Jelly 2% was placed into the urethra and 16Fr flexible Olympus cystoscope was inserted into the meatus after adequate lubrication. Procedure Time out per protocol performed. Bladder Inspection Bladder Inspection: The bladder was inspected in its entirety with utilization retroflexion displaying: Tumor(s): none visualized Trabeculation: N/A Mucosal Erthema: present-mild Orifices: normal shape and position Urethra: normal Cystoscopy findings: prostatic urethra non obstructive, bulbous urethra WNL, no suspicious bladder lesions visualized [id number] DISPOSABLE SCOPE URO-G FLEXIBLE SCOPE Procedure code (CPT) selection complete Office Meds lidocaine HCl 2 % mucosal jelly in applicator Performing Provider: Oscar Lopez MD Performing Location: [facility] Administered by: Olga Perez RN on 02/03/24 14:48 Dose Route Admin Location Dispensed Lot Number Expiration Date [facility] [employer] 10 mL intra-urethral 20 mL naproxen 500 mg tablet Performing Provider: Oscar Lopez MD Performing Location: [facility] Administered by: Olga Perez RN on 02/03/24 14:48 Dose Route Admin Location Dispensed Lot Number Expiration Date [place] [employer] 500 mg PO 1 tab ciprofloxacin HCl 500 mg tablet Performing Provider: Oscar Lopez MD Performing Location: [facility] Administered by: Olga Perez RN on 02/03/24 14:48 Dose Route Admin Location Dispensed Lot Number Expiration Date [facility] [employer] 500 mg PO 1 tab Results AMB Urinalysis, Automated UA Leukoctes 0 Yasmin/uL Last Edit by KAYLYNN Doss on 02/03/24 15:45 UA Nitrite Negative Last Edit by KAYLYNN Doss on 02/03/24 15:45 UA Urobilinogen 0.2 mg/dL Last Edit by KAYLYNN Doss on 02/03/24 15:4 5 UA Protein 15 mg/dL Last Edit by KAYLYNN Doss on 02/03/24 15:45 UA pH 6.0 Last Edit by KAYLYNN Doss on 02/03/24 15:45 UA Blood 200 Naseem/uL Last Edit by KAYLYNN Doss on 02/03/24 15:45 3+ Kishore Irwin 02/03/24 15:45 UA Specific [place] 1.015 Last Edit by KAYLYNN Doss on 02/03/24 15: 45 UA Ketone Last Edit by KAYLYNN Doss on 02/03/24 15:45 UA Bilirubin 0 mg/dL Last Edit by KAYLYNN Doss on 02/03/24 15:45 UA Glucose 0 mg/dL Last Edit by KAYLYNN Doss on 02/03/24 15:45 Results Reviewed Results Reviewed: Laboratory Last Values Urine pH (Auto) 6.0 02/03/24 15:27 Specific Hamilton (Auto) 1.015 02/03/24 15:27 Urine Protein (Auto) 15 mg/dL 02/03/24 15:27 Glucose (UA)(Auto) 0 mg/dL 02/03/24 15:27 Urine Blood (Auto) 200 Naseem/uL 02/03/24 15:27 Urine Nitrite (Auto) Negative 02/03/24 15:27 Urine Bilirubin (Auto) 0 mg/dL 02/03/24 15:27 Urine Urobilinogen (Auto) 0.2 mg/dL 02/03/24 15:27 Leukocyte Esterase (Auto) 0 Yasmin/uL 02/03/24 15:27 Date of Service: 12/16/23 EXAMINATION: CT ABDOMEN AND PELVIS WITHOUT AND WITH CONTRAST CLINICAL INFORMATION: Gross hematuria. COMPARISON: 05/10/2018 TECHNIQUE: Noncontrast CT of the abdomen and pelvis is performed followed by split bolus contrast-enhanced images using 85 mL Omnipaque 350 contrast.? Postcontrast imaging is performed during the combined nephrogram and excretion phase. Sagittal and coronal reformatted images were obtained on the technologist's workstation for both the precontrast and postcontrast phases. This CT examination was performed using dose optimization techniques as appropriate, variously including the following: *Automated exposure control *Adjustment of mA and/or kV according to patient size (this includes techniques or standardized protocols for targeted exams where dose is matched to indication/reason for exam; i.e. extremities or head) *Use of iterative reconstruction technique DLP: 880 mGy-cm FINDINGS: LUNG BASES: Small hiatal hernia. LIVER, GALLBLADDER, AND BILIARY TREE: The liver is normal in size and contour. No suspicious hepatic lesion or biliary ductal dilatation is present. The gallbladder is unremarkable with no evidence of radiopaque gallstones, gallbladder wall thickening, or obvious pericholecystic inflammatory changes. PANCREAS: No ductal dilatation. SPLEEN: Chronic granulomatous disease. ADRENAL GLANDS: No adrenal mass. KIDNEYS AND URETERS: The kidneys are symmetric in size and enhancement. No renal or ureteral calculus. No perinephric stranding. Delayed images demonstrate intact renal function. Bilateral collecting systems and opacified portions of the ureters are nondilated. There is possible thickening of the distal right ureter at the ureterovesical junction/ureteral insertion. BLADDER: Underdistended. No bladder calculus. The bladder mostly fills with excreted contrast. No intraluminal filling defects are appreciated. GASTROINTESTINAL TRACT: Small and large bowel loops are of normal caliber. No small bowel obstruction. Appendix is within normal limits. ABDOMINAL WALL: Fat-containing umbilical hernia. LYMPH NODES: No lymphadenopathy. VASCULAR: Normal caliber abdominal aorta. PELVIC VISCERA: Enlarged prostate gland. OSSEUS STRUCTURES: No destructive bone lesions. IMPRESSION: There is possible thickening of the distal right ureter at the ureterovesical junction/ureteral insertion. No hydronephrosis. Consider urologic consultation and ureteroscopy. Assessment & Plan Assessment & Plan (1) BPH (benign prostatic hyperplasia): Code(s): N40.0 - Benign prostatic hyperplasia without lower urinary tract symptoms (2) Microscopic hematuria: Code(s): R31.29 - Other microscopic hematuria (3) Abnormal finding on CT scan: Code(s): R93.89 - Abnormal findings on diagnostic imaging of other specified body structures Plan Cystoscopy, bilateral retrogrades, bladder biopsies. Orders: Orders AMB Urinalysis Automated 02/03/24 Z13.9 - Encounter for screening, unspecified AMB Cystoscopy 02/03/24 N40.0 - Benign prostatic hyperplasia without lower urinary tract symptoms, R31.29 - Other microscopic hematuria Patient Instructions: The patient had an opportunity to ask questions regarding treatment plan. All questions were answered. Imaging, Laboratory studies and physical exam results were discussed and reviewed in detail. No major barriers to understanding were identified. The patient expressed understanding and agreement with the above treatment plan. The patient is aware they should contact our office by phone for worsening of their current condition or the appearance of new symptoms. Compliance is encouraged with any medications and followup testing that is ordered. It is a privilege to be allowed the opportunity to participate in the urologic care of your patient. If you have any questions or concerns regarding treatment for the above conditions please do not hesitate to contact me. The office telephone contact is [phone]. This note is constructed in part using voice recognition software. While every effort has been made to ensure accuracy prefitter errors may have been included. Yours sincerely, Oscar Lopez MD Coding Level of Care Code Est Pt Level 3 (48434) Diagnoses BPH (benign prostatic hyperplasia) N40.0 Microscopic hematuria R31.[address] scan R93.89 CPT Codes Cystoscopy - CPT: [id number] ([id number])
== END 2024-02-03 15:54 | disposition home or self-care (01) ==
LOC: HO.HUSH 14:00
PROVIDERS: Visit Provider Urology
DX: N40.0 Benign prostatic hyperplasia without lower urinary tract symptoms (principal); R31.29 Other microscopic hematuria; R93.89 Abnormal findings on diagnostic imaging of other specified body structures
CPT/HCPCS: 52000; 99213

== ENCOUNTER → 2024-02-03 14:00 | Outpatient (BNVA) | payer MEDICARE, MEDICAID, SELFPAY | PROVIDERS: Visit Provider Urology | DX: N40.0 Benign prostatic hyperplasia without lower urinary tract symptoms (principal); R31.29 Other microscopic hematuria; R93.89 Abnormal findings on diagnostic imaging of other specified body structures | CPT/HCPCS: 52000; 81003; 99212 ==

== ENCOUNTER 2024-03-15 06:00 | Day surgery (SDC) | payer MEDICARE, MEDICAID, SELFPAY ==
[2024-03-15] VITALS (7 sets, daily range): BP systolic 117–144; BP diastolic 68–88; PULSE 66–89; RESP 14–89; TEMP 36.2–36.4; O2SAT 94–98; BMI 29.0
--- NOTE | ~2024-03-15 | FL_ITS ---
EXAMINATION: XR FLUOROSCOPY WITH IMAGES CLINICAL INFORMATION: Bladder biopsy and bilateral retrograde urography. COMPARISON: CT urogram dated 12/16/2023. TECHNIQUE: Fluoroscopy Supervised By: Dr. Lopez. Fluoroscopy Time: 23.2 seconds. Cumulative Dose: 6.10 mGy. Images: 4. FINDINGS: The submitted images show a cystoscope and contrast opacification of the bilateral intrarenal and extrarenal collecting structures. FL/FL guidance in OR IMPRESSION: Intraoperative fluoroscopic guidance is provided during bladder biopsy and bilateral retrograde urography. Please see the patient's Operative Report for full procedural details.
--- NOTE | 2024-03-15 07:27 | HO.ANESPROP2 ---
[facility] Active Problems Active Problems: All Active Problems Abnormal finding on CT scan (Acute) Illiterate (Acute) Constipation (Acute) Anosmia (Acute) Chest pain at rest (Acute) Pre-op examination (Acute) BPH (benign prostatic hyperplasia) (Acute) Degenerative disc disease, cervical (Acute) Lumbar degenerative disc disease (Acute) Chronic pain (Acute) High cholesterol (Acute) History of nicotine dependence (Acute) Microscopic hematuria (Acute) COVID-19 (Acute) Angioedema (Acute) Right inguinal hernia (Acute) Past Medical History Medical History Gastritis Herniated disc, cervical Hemorrhoids Hypertension Family History Family History Mother Liver disease Father Epilepsy Family history of problems with anesthesia: No Surgical History Surgical History History of prostate surgery H/O inguinal hernia repair History of right inguinal hernia repair (02/13/23) History of Problems with Anesthesia: No Social History Social History Alcohol intake: former Patient Tobacco Use Status: Never used Tobacco Are you DNR?: No Advance Directives: No Advance Directives Information Provided: Yes Recently lost weight without trying: No Nutrition Risks: No Nutritional Risk Meds Allergies Allergy/AdvReac Type Severity Reaction Status Date / Time RENA Inhibitors AdvReac Severe Angioedema Verified 02/03/24 14:04 Active Medications: Current Medications Lactated Ringer's (Lr) 1,000 mls @ 50 mls/hr IVCONT .Q20H [place] Home Medications ?Medication ?Instructions ?Recorded ?Confirmed ?Last Taken ?Type rosuvastatin 10 mg tablet 10 mg PO BEDTIME 11/02/23 Unknown History cetirizine 10 mg tablet 10 mg PO QAM 01/12/24 Unknown History Exam Height,Weight and Vital Signs: Height 5 ft 5 in Weight 78.925 kg Last Vital Signs Temp 97.2 F 03/15/24 06:04 Pulse 89 03/15/24 06:04 Resp 89 H 03/15/24 06:04 BP 144/88 H 03/15/24 06:04 Pulse Ox 97 03/15/24 06:04 O2 Del Method Room Air 03/15/24 06:04 Airway Mallampati Class: II TM Dist: >3cm Heart: rrr Lungs: clear Assessment and Plan Final Anesthetic Review Family History of Problems with Anesthesia: No History of Problems with Anesthesia: No NPO: Yes ASA Class: II Final Preanesthetic Review: No Changes in Pt Med Stat, Meds/Allgs Chart Reviewed, Consent Obtained/Reviewed and Anes Risks/Benef Reviewed Patient Risk: Intermediate Procedure Risk: Low Anesthetic Plan Anesthetic Plan: GA Disposition: Standard PACU
[2024-03-15] MEDS: Lactated Ringers 1,000 ML 50 ML IVCONT (07:50)
--- NOTE | 2024-03-15 07:56 | MHC.SHP ---
Pre-Procedural Eval Section A - 24 Hr Update-Section A only Date of Service: 03/15/24 The patient is an INPATIENT: No Section B - Complete if H&P > 30 days Chief Complaint: Other microscopic hematuria Allergies: Allergies Allergy/AdvReac Type Severity Reaction Status Date / Time RENA Inhibitors AdvReac Severe Angioedema Verified 02/03/24 14:04 Plan Diagnosis/Plan: Unchanged I have reviewed the history and physical and performed a pertinent physical examination on my patient. No changes have occurred unless specified. Cystoscopy, bladder biopsies. Bilateral retrogrades, possible ureteroscopy Time Spent With Patient Time: Total time managing care of this patient today ____ minutes.
--- NOTE | 2024-03-15 08:40 | W.PM.OPN ---
Operative Note Operative Note Date of Service: 03/15/24 Narrative: Pre Operative Diagnosis:?? Hematuria, Abnormal finding on CT scan Post Operative Diagnosis:?? ?Hematuria, Abnormal finding on CT scan Procedure: Cystoscopy, bilateral retrograde, random bladder biopsies Surgeon:?Dr Oscar Lopez Anesthesia:? General Indications for procedure: Abraham was referred to urology for evaluation of microscopic hematuria. Evaluation included CT urogram. I have reviewed CT scan results, 12/16/2023, there is questionable thickening of the right distal ureter. The patient is here for further evaluation. Procedure: After informed consent was verified the patient was brought to the operating placed on the OR table in supine position.? General Anesthesia was administered per protocol.? The patient was placed in lithotomy position, prepped and draped in the usual sterile fashion.? Safety pause time-out and side of surgery confirmed.? Antibiotics confirmed. A 22 [place] cystoscope was inserted transurethrally, the bulbous urethra was within normal limits. The prostatic urethra noted bilobar enlargement right > left. The bladder was visualized.? Both ureteric orifices were in normal position. Clear efflux of urine noted from both the right and left ureteral orifices. The? left ureteric orifice was cannulated? and a retrograde examination was performed, no filling defects were noted. Normal retrograde. The right ureteral orifice was then cannulated and a right retrograde was performed. No filling defects were noted on the right ureter renal pelvis. Normal right retrograde. Random bladder biopsies were then done from the posterior wall, right lateral wall, and left lateral wall. The Bugbee electrode was used to obtain hemostasis. The bladder was emptied.? The rigid cystoscope was removed. ? The patient tolerated the procedure well and was brought to the recovery room in stable condition. Complications: None Drains: none
[2024-03-15] MEDS: Phenazopyridine HCL 200 MG TABLET PO (09:30)
== END 2024-03-15 10:31 | disposition home or self-care (01) ==
PROVIDERS: PCP Registered Nurse; Visit Provider Urology
PROC: (CPT 52204; principal; 2024-03-15 07:30)
DX: N30.20 Other chronic cystitis without hematuria (principal); N40.0 Benign prostatic hyperplasia without lower urinary tract symptoms; R31.29 Other microscopic hematuria; I10 Essential (primary) hypertension; Z79.899 Other long term (current) drug therapy; Z88.8 Allergy status to other drugs, medicaments and biological substances; Z98.890 Other specified postprocedural states
CPT/HCPCS: 52204; 88305; J0690; J1100; J2250; J2405; J2704; J3010; Q9967

== ENCOUNTER → 2024-03-15 06:00 | Outpatient (BNV) | payer MEDICARE, MEDICAID, SELFPAY | PROVIDERS: PCP Registered Nurse; Visit Provider Urology | DX: R31.29 Other microscopic hematuria (principal) | CPT/HCPCS: 52204; 74420 ==

== ENCOUNTER 2024-03-31 23:07 | Emergency (ER) | payer MEDICARE, MEDICAID, SELFPAY ==
--- NOTE | ~2024-03-31 | CT_ITS ---
EXAMINATION: CT ABDOMEN AND PELVIS WITHOUT CONTRAST CLINICAL INFORMATION: Hematuria COMPARISON: 12/16/2023 TECHNIQUE: Multidetector volumetric imaging was performed from the superior aspect of the liver through the pubic symphysis. Sagittal and coronal reformatted images were obtained on the technologist's workstation. This CT examination was performed using dose optimization techniques as appropriate, variously including the following: *Automated exposure control *Adjustment of mA and/or kV according to patient size (this includes techniques or standardized protocols for targeted exams where dose is matched to indication/reason for exam; i.e. extremities or head) *Use of iterative reconstruction technique DLP: 491 mGy-cm FINDINGS: LUNG BASES: Minimal dependent atelectasis. LIVER, GALLBLADDER, AND BILIARY TREE: The liver is normal in size, shape, and attenuation. No focal hepatic lesion or biliary ductal dilatation is identified on this noncontrast exam. The gallbladder is unremarkable with no evidence of radiopaque gallstones, gallbladder wall thickening, or obvious pericholecystic inflammatory changes. PANCREAS: Unremarkable. SPLEEN: Numerous calcified granulomas in the spleen. ADRENAL GLANDS: Unremarkable. KIDNEYS AND URETERS: No hydronephrosis or obstructing calculus bilaterally. Significantly limited evaluation of the renal parenchyma without intravenous contrast. BLADDER: Mildly distended and grossly unremarkable. GASTROINTESTINAL TRACT: No evidence of bowel obstruction or significant wall thickening. The appendix is unremarkable. No free fluid or free air is seen. ABDOMINAL WALL: Small fat-containing umbilical hernia. LYMPH NODES: Normal. VASCULAR: Unremarkable. PELVIC VISCERA: Unremarkable. OSSEOUS STRUCTURES: Scattered mild degenerative changes in the spine. CT/CT abdomen pelvis wo IV con IMPRESSION: No acute findings identified in the abdomen/pelvis. No hydronephrosis or obstructing calculus.
[2024-03-31 23:33] VITALS: BP 148/86; PULSE 70; RESP 16; TEMP 36.5; O2SAT 97; BMI 26.8
[2024-03-31 23:50] LABS: Basophils Percent Auto 0.4 % (0-2); Eosinophils Absolute Auto 0.2 X10*3/uL (0.0-0.4); Eosinophils Percent Auto 2.8 % (0-4); Hematocrit 37.8 % (42.0-52.0); Imm Gran Abs Auto 0.02 X10*3/uL (0.00-0.03); Imm Gran Pct Auto 0.3 % (0.0-0.4); Lymphocytes Absolute Auto 2.4 X10*3/uL (1.2-4.9); Lymphocytes Percent Auto 33.5 % (20-40); MANUAL DIFF FLAG NO; Mean Corpuscular HGB Conc 34.4 g/dl (31.0-36.0); Mean Corpuscular Hemoglobin 32.1 pg (27.0-33.0); Mean Corpuscular Volume 93.3 fL (80.0-98.0); Mean Platelet Volume 9.4 fL (9.4-12.4); Monocytes Absolute Auto 0.7 X10*3/uL (0.1-1.2); Monocytes Percent Auto 10.2 % (2-11); Neutrophils Absolute Auto 3.7 x10*3/uL (2.0-8.3); Neutrophils Percent Auto 52.8 % (45-73); Platelet Count 225 X10*3/uL (160-400); Red Blood Count 4.05 X10*6/uL (4.60-5.80); Red Cell Distribution Width 13.1 % (11.0-16.0)
[2024-03-31 23:51] LABS: Appearance Urine Clear; Color Urine Yellow; Glucose Urine UA Negative (Negative); Leukocyte Esterase Urine Trace (Negative); Nitrite Urine Negative (Negative); UMIC TRIGGER UACC YES; Urine Blood Large (3+) (Negative); Urine Ketones Negative (Negative); Urine Protein Negative (Neg-Trace)
[2024-03-31 23:53] LABS: Bacteria Urine None Seen (None Seen); Hyaline Casts Urine 0-2 /LPF (0-2); RBC Urine >20 /HPF (0-2); Squamous Epithelial Cell Urine 0-2 /HPF (0-2); WBC Urine 0-5 /HPF (0-5)
[2024-04-01 00:06] LABS: Anion Gap 12 (12-20); Blood Urea Nitrogen 16 mg/dL (9-16); Calcium 9.4 mg/dL (8.4-10.2); Carbon Dioxide 26 mmol/L (22-29); Chloride 108 mmol/L (96-108); Creatinine Clr Calc Pharmacy 68.6; Estimated Glomerular Filt Rate > 60; Glucose Random 98 mg/dL (60-115); Potassium 4.3 mmol/L (3.3-5.1); Sodium 142 mmol/L (135-145)
[2024-04-01 03:51] VITALS: BP 135/84; PULSE 59; RESP 16; TEMP 36.5; O2SAT 99
[2024-04-01 05:18] VITALS: BP 122/75; PULSE 62; RESP 16; TEMP 36.1; O2SAT 98
[2024-04-01 07:48] VITALS: BP 138/83; PULSE 69; RESP 16; TEMP 36.4; O2SAT 96
[2024-04-01 07:48] LABS: MANUAL DIFF FLAG NO
--- NOTE | 2024-04-01 07:48 | PC.NURSE ---
this RN resumed care of pt at 0700. vss and up to ate. labs obtained/sent to lab. results pending prior to d/c. plan of care ongoing. call ghosh placed within reach.
[2024-04-01 07:49] LABS: Basophils Absolute Auto 0.1 X10*3/uL (0.0-0.2); Basophils Percent Auto 0.8 % (0-2); Eosinophils Absolute Auto 0.2 X10*3/uL (0.0-0.4); Hematocrit 39.3 % (42.0-52.0); Hemoglobin 13.7 g/dl (14.0-18.0); Imm Gran Abs Auto 0.02 X10*3/uL (0.00-0.03); Imm Gran Pct Auto 0.3 % (0.0-0.4); Lymphocytes Absolute Auto 2.3 X10*3/uL (1.2-4.9); Lymphocytes Percent Auto 33.8 % (20-40); Mean Corpuscular HGB Conc 34.9 g/dl (31.0-36.0); Mean Corpuscular Hemoglobin 32.1 pg (27.0-33.0); Mean Platelet Volume 8.9 fL (9.4-12.4); Monocytes Absolute Auto 0.6 X10*3/uL (0.1-1.2); Monocytes Percent Auto 8.9 % (2-11); Neutrophils Absolute Auto 3.6 x10*3/uL (2.0-8.3); Neutrophils Percent Auto 53.2 % (45-73); Platelet Count 229 X10*3/uL (160-400); Red Blood Count 4.27 X10*6/uL (4.60-5.80); Red Cell Distribution Width 13.1 % (11.0-16.0); White Blood Count 6.7 X10*3/uL (4.8-10.8)
--- NOTE | 2024-04-01 07:49 | ED.MALEGU ---
HPI - Male Genitourinary General Chief complaint: Urogenital-Male Stated complaint: Blood in urine Time Seen by Provider: 04/01/24 06:49 Source: patient Mode of arrival: ambulatory Limitations: other (Poor historian) History of Present Illness HPI Narrative: 62-year-old male history of microscopic hematuria, nicotine dependence, hyperlipidemia, lumbar degenerative disc disease, BPH, anosmia, presenting to the emergency department with concerns that he had blood in his urine on 03/31/2024 between the hours of 7 and 21:00, this self-resolved. He reports it was blood-tinged urine and at times looked very red. He reports it also guan when he urinates. He reports he had some sort of procedure done on 03/15/2024, that was here he was unable to explain exactly what procedure he had done. Denies fevers, chills, nausea, vomiting, abdominal pain, headache, vision changes, dizziness, weakness, chest pain and shortness of breath. Patient not on blood thinners. He states he is followed by urology forgets the doctor's name Related Data Home Medications ?Medication ?Instructions ?Recorded ?Confirmed rosuvastatin 10 mg tablet 10 mg PO BEDTIME 11/02/23 cetirizine 10 mg tablet 10 mg PO QAM 01/12/24 Previous Rx's ?Medication ?Instructions ?Recorded amlodipine 10 mg tablet (Norvasc) 10 mg PO DAILY #30 tabs 01/13/23 epinephrine 0.3 mg/0.3 mL 0.3 mg (0.3 mL) IM Q4H PRN 01/13/23 injection, auto-injector (EpiPen) anaphylaxis #2 ea bisacodyl 5 mg tablet,delayed 10 mg (2 x 5 mg) PO BEDTIME 2 days 01/12/24 release (Dulcolax (bisacodyl)) #4 tabs peg 3350-electrolytes 236 240 ml PO Q10M 1 day #4,000 mL 01/12/24 gram-22.74 gram-6.74 gram-5.86 gram solution (Golytely) psyllium husk 0.4 gram capsule 0.4 g PO BID #60 caps 01/12/24 (Daily Fiber) oxycodone-acetaminophen 5 mg-325 1 tab PO Q8H PRN pain #6 tabs 03/15/24 mg tablet (Percocet) cefuroxime axetil 250 mg tablet 250 mg PO BID 7 days #14 tabs 04/01/24 Allergies Allergy/AdvReac Type Severity Reaction Status Date / Time RENA Inhibitors AdvReac Severe Angioedema Verified 03/31/24 23:35 Review of Systems Review of Systems: Yes all other systems are reviewed and are negative [facility] Past Medical History Attestation statement: The following information was validated with the patient. Source: old records reviewed and nursing notes reviewed Medical History Gastritis Herniated disc, cervical Hemorrhoids Hypertension Surgical History History of prostate surgery H/O inguinal hernia repair History of right inguinal hernia repair (02/13/23) Family History Family History Mother Liver disease Father Epilepsy Social History Social History Alcohol intake: former Comment: given pyridium Patient Tobacco Use Status: Never used Tobacco Advance Directives: No Advance Directives Information Provided: Yes Do you have a plan to hurt others: No Plan Physical Exam Vital Signs: Vital Signs: Last Vital Signs Temp 97.6 F 04/01/24 07:48 Pulse 69 04/01/24 07:48 Resp 16 04/01/24 07:48 BP 138/83 04/01/24 07:48 Pulse Ox 96 04/01/24 07:48 O2 Del Method Room Air 04/01/24 07:48 BMI result Body Mass Index 26.8 vss Appearance: Alert.? Oriented X3.? No acute distress.? Head: Normocephalic, atraumatic, no step-offs or deformities Eyes: Pupils equal, round and reactive to light.? ENT: Pharynx normal.? Neck: Normal inspection.? Neck supple.? CVS: Normal heart rate and rhythm.? Pulses normal.? Respiratory: No respiratory distress.? Breath sounds normal.? Abdomen: Soft and nontender.? Skin: Skin warm and dry.? Normal skin color.? Normal skin turgor.? Sensitive exam: Refused. 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 No calf ttp. 5/5 strength to bilateral upper and lower extremities Neuro: Oriented X 3.? No motor deficit.? No sensory deficit. CN 2-12 intact Course Reevaluation(s) Reevaluation #1: CBC appears to be around patient's baseline with a normocytic anemia. No acute findings. Chemistry no electrolyte abnormalities requiring intervention. Chemistry with large amount of blood in urine, leukocyte esterases, no bacteria noted, few epithelial cells based off symptoms patient will be treated for UTI, urine culture pending patient will be called if it is positive. CT abdomen and pelvis no acute findings identified in the abdomen or pelvis no hydronephrosis or obstructing calculus. Patient feeling well. Will discharge with Ceftin in urology follow-up. Educated patient on diagnosis and treatment plan, answered all question, patient verbalizes understanding. At this time patient will be discharged home, advised to return with new or worsening symptoms. Educated on worrisome signs and symptoms and when to return. At this time I feel comfortable discharge home. Time: 07:56 Medical Decision Making Medical Decision Making [facility] Narrative: [id number] 68-year-old male presents for evaluation of hematuria that occurred between the hours of 19:00 and 21:00 last night. Reports recent procedure however unsure what procedure he had Upon chart review it appears as though patient had an abnormal CT urogram with thickening of the ureter and subsequently had a cystoscopy, bilateral retrograde, random bladder biopsies done on 03/15/[address] Nazario España. Physical exam benign. Patient refused sensitive exam. History and physical exam concerning for possible hematuria versus cystitis versus UTI versus malignancy versus postoperative bleeding. Unlikely acute blood loss anemia, hemodynamic instability, metabolic derangements. I do not suspect pyelonephritis. Unlikely obstructing uropathy. No signs of acute abdomen. Plan at this time labs, imaging. Differential Diagnosis Differential Diagnoses: The differential diagnosis associated with the presentation includes History and physical exam concerning for possible hematuria versus cystitis versus UTI versus malignancy versus postoperative bleeding. Unlikely acute blood loss anemia, hemodynamic instability, metabolic derangements. I do not suspect pyelonephritis. Unlikely obstructing uropathy. No signs of acute abdomen. Admission/Observation Consideration of admission/observation: Escalation of care including admission/observation considered Unlikely Lab Data [facility] Lab Attestation statement: I reviewed the patient's lab results. 03/31/24 23:45 03/31/24 23:45 Labs: Lab Results 03/31/24 Range/Units 23:45 WBC 7.0 (4.8-10.8) X10*3/uL RBC 4.05 L (4.60-5.80) X10*6/uL Hgb 13.0 L (14.0-18.0) g/dl Hct 37.8 L (42.0-52.0) % MCV 93.3 (80.0-98.0) fL MCH 32.1 (27.0-33.0) pg MCHC 34.4 (31.0-36.0) g/dl RDW 13.1 (11.0-16.0) % Plt Count 225 (160-400) X10*3/uL MPV 9.4 (9.4-12.4) fL Immature Gran % (Auto) 0.3 (0.0-0.4) % Neut % (Auto) 52.8 (45-73) % Lymph % (Auto) 33.5 (20-40) % [place] % (Auto) 10.2 (2-11) % Eos % (Auto) 2.8 (0-4) % Baso % (Auto) 0.4 (0-2) % Lymph # (Auto) 2.4 (1.2-4.9) X10*3/uL [place] # (Auto) 0.7 (0.1-1.2) X10*3/uL Eos # (Auto) 0.2 (0.0-0.4) X10*3/uL Baso # (Auto) 0.0 (0.0-0.2) X10*3/uL Abs Immat Gran (auto) 0.02 (0.00-0.03) X10*3/uL Absolute Neuts (auto) 3.7 (2.0-8.3) x10*3/uL Absolute Nucleated RBC 0.000 (0.0-0.012) X10*3/uL Nucleated RBC % (auto) 0.0 (0.0-0.2) /100WBC Sodium 142 (135-145) mmol/L Potassium 4.3 (3.3-5.1) mmol/L Chloride 108 (96-108) mmol/L Carbon Dioxide 26 (22-29) mmol/L Anion Gap 12 (12-20) BUN 16 (9-16) mg/dL Creatinine 0.99 (0.5-1.4) mg/dL Estim Creat Clear Calc 68.6 Estimated GFR > 60 Random Glucose 98 (60-115) mg/dL Calcium 9.4 (8.4-10.2) mg/dL Urine Color Yellow Urine Appearance Clear Urine pH 6.0 (5.0-9.0) Ur Specific Wanda 1.010 (1.005-1.025) Urine Protein Negative (Neg-Trace) mg/dL Urine Glucose (UA) Negative (Negative) mg/dL Urine Ketones Negative (Negative) mg/dL Urine Blood Large (3+) H (Negative) Urine Nitrite Negative (Negative) Ur Leukocyte Esterase Trace H (Negative) Urine RBC >20 H (0-2) /HPF Urine WBC 0-5 (0-5) /HPF Ur Squamous Epith Cells 0-2 (0-2) /HPF Urine Bacteria None Seen (None Seen) Hyaline Casts 0-2 (0-2) /LPF Independent Interpretation I performed an independent interpretation of an: CT Scan (CT/CT abdomen pelvis wo IV con IMPRESSION: No acute findings identified in the abdomen/pelvis. No hydronephrosis or obstructing calculus. ) Radiology Impression Discussion of test interpretation with radiology: I have reviewed the radiologist's reading. External Record Review External record reviewed: Inpatient record, Office record, Outpatient record, Prior outpatient labs, Prior outpatient radiology, Primary care record and Outside ED record Prescription Management I considered prescription management with: Antibiotic Chronic Conditions Patient?s care impacted by: Other (Microscopic hematuria, illiterate, cystitis) Discharge Plan Discharge Clinical Impression: Cystitis, Hematuria Patient Disposition: Home, Self-Care Instructions: Urinary Tract Infection in Men (DC), Hematuria (ED) Additional Instructions: Take your medications as prescribed. If you were prescribed antibiotics today, it is important that you take your medication to their entirety, do not skip any doses, do not finish them early. Follow-up with your primary care provider this week. Return to the emergency department with new or worsening symptoms. In case of emergency call 911 Follow up with urology this week Prescriptions: New cefuroxime axetil 250 mg tablet 250 mg PO BID 7 Days Qty: 14 0RF No Action amlodipine [Norvasc] 10 mg tablet 10 mg PO DAILY Qty: 30 0RF epinephrine [EpiPen] 0.3 mg/0.3 mL auto-injector 0.3 mg IM Q4H PRN (Reason: anaphylaxis) Qty: 2 0RF oxycodone-acetaminophen [Percocet] 5-325 mg tablet 1 tab PO Q8H PRN (Reason: pain) Qty: 6 0RF Rx Instructions: Partial Fill upon patient request. rosuvastatin 10 mg tablet 10 mg PO BEDTIME peg 3350-electrolytes [Golytely] 236-22.74-6.74 -5.86 gram recon soln 240 ml PO Q10M 1 Days Qty: 4000 0RF Rx Instructions: until fecal effluent is clear; do not exceed a total volume of 2,000 mL bisacodyl [Dulcolax (bisacodyl)] 5 mg tablet,delayed release (DR/EC) 10 mg PO BEDTIME 2 Days Qty: 4 0RF cetirizine 10 mg tablet 10 mg PO QAM psyllium husk [Daily Fiber] 0.4 gram capsule 0.4 g PO BID Qty: 60 6RF Referrals: [facility] [Provider Group] - 3 days Physician,Unknown J [Primary Care Provider] - 2 days Stand Alone Forms: Work/School Release Print Language: Canadian
[2024-04-01 08:12] VITALS: BP 138/83; PULSE 69; RESP 16; TEMP 36.4; O2SAT 96
== END 2024-04-01 08:12 | disposition home or self-care (01) ==
PROVIDERS: Physician Assistant; Emergency Provider Emergency Medicine
DX: N30.91 Cystitis, unspecified with hematuria (principal); I10 Essential (primary) hypertension
CPT/HCPCS: 36415; 74176; 80048; 81001; 85025; 99283; 99284

== ENCOUNTER 2024-04-18 11:28 | Outpatient (AMB) | payer MEDICARE, MEDICAID, SELFPAY ==
--- NOTE | 2024-04-18 11:45 | A.OFFVIS_ITS ---
Intake Visit Reasons: BI Retrogrades/Bladder Biopsy- follow up/ER f/u Intake Note: Patient presents today for a follow-up on B/L Retrograde/Bladder Biopsy- 03/25/24: ED visit-04/01/2024 Meds- None Allergies to Antibiotic- No Known Allergies Blood Thinner- None Candy Butcher Required: Yes Candy Butcher Language: Maltese Information Interpreted: non-clinical & clinical Accompanied by: Self / Same As Patient Allergies RENA Inhibitors Adverse Reaction (Severe, Verified 04/18/24 11:46) Angioedema Medication List - Last Reconciled 04/18/24 by Oscar Lopez MD amlodipine (Norvasc) 10 mg PO DAILY bisacodyl (Dulcolax (bisacodyl)) 10 mg (2 x 5 mg) PO BEDTIME 2 days cefuroxime axetil 250 mg PO BID 7 days cetirizine 10 mg PO QAM epinephrine (EpiPen) 0.3 mg (0.3 mL) IM Q4H PRN oxycodone-acetaminophen 5-325 mg (Percocet) 1 tab PO Q8H PRN peg 3350-electrolytes 236-22.74-6.74 -5.86 gram (Golytely) 240 mL PO Q10M 1 day psyllium husk (Daily Fiber) 0.4 grams PO BID rosuvastatin 10 mg PO BEDTIME HPI Comments Details: 04/18/2024--Abraham bejarano is 68-year-old male here for post cystoscopy bilateral retrogrades and random bladder biopsies. Certified optical effects line up person present. I have discussed that the cystoscopy and retrogrades were within normal limits no suspicious bladder lesions visualized. Random bladder biopsies revealed pathology results of chronic cystitis. No atypical cells. He presented to ED on 04/01/24 due to gross hematuria. He was treated cefurixme. He states he has been doing well since completing antibiotics. Discussed FU with SALES DONOR RECRUITMENT REPRESENTATIVE in 6 months PSA prior. Review of Labs---PSA-08/26/2023--2.44 ng/mL Review of chart: 02/03/24--Abraham is here for office cystoscopy. He was initially evaluated by the Urology nurse practitioner, 11/02/2023 for microscopic hematuria. He was sent for CT urogram. I have reviewed CT scan results, 12/16/2023, there is questionable thickening of the right distal ureter. Office cystoscopy today- Cystoscopy findings: prostatic urethra non obstructive, bulbous urethra WNL, no suspicious bladder lesions visualized. Plan - Cystoscopy, bilateral retrogrades, bladder biopsies. 11/02/23--Abraham is a very pleasant 68-year-old Maltese-speaking male patient. He has a past medical history of gastritis, cervical herniated disc, hemorrhoids, and hypertension. He presents to the office today as a new patient for microscopic hematuria. In discussion with the patient today reports to be doing and feeling well. He reports having followed up with his PCP and having annual labs and urine at which time he was noted to have microscopic hematuria and recommendations were made for Urology follow-up for further assessment evaluation. When asked he reports a previous history of prostate procedure in [place]. He reports having had procedure to make his prostate smaller. He currently denies any bothersome urinary issues or concerns. When asked he does report a previous smoking history. He reports having quit over 10 years ago however had been smoking on and off approximately half a pack to 1 pack of c igarettes per day. He denies any known workplace chemical exposure. He denies any family history of prostate and or bladder cancer. He does report a family history of liver cancer. Discussed at length potential causes of microscopic hematuria. Discussed further microscopic hematuria workup versus surveillance monitoring. This was discussed at length. Discussed risks and benefits of surveillance monitoring verses further workup. When asked he denies urinary urgency, urinary frequency, incontinence, nocturia, hematuria, dysuria, foul smelling urine, changes to urinary stream, flank pain, fever, and or chills. He is happy with his current voiding parameters. In office urinalysis with 3+ microscopic hematuria otherwise within normal limits. He otherwise offers no issues or concerns. In review of patient's chart it appears PSA 08/22--2.4. PFSH Medical History Gastritis Herniated disc, cervical Hemorrhoids Hypertension Surgical History History of prostate surgery H/O inguinal hernia repair History of right inguinal hernia repair (02/13/23) Family History Mother Liver disease Father Epilepsy Social History Alcohol intake: former Comment: given pyridium Patient Tobacco Use Status: Never used Tobacco Review of Systems Const All systems reviewed & are unremarkable except as noted in HPI and below Reports no additional complaints Eyes Reports no additional complaints ENT Reports no additional complaints Card Reports no additional complaints Resp Reports no additional complaints GI Reports no additional complaints Reports as per HPI Musc Reports no additional complaints Skin/Breast Reports system reviewed and no additional complaints, except as documented Neuro Reports no additional complaints Psych Reports no additional complaints Endo Reports no additional complaints Paco/Lymph Reports no additional complaints Aller/Immun Reports no additional complaints Results Reviewed Results Reviewed: Collected: 03/15/24 Location: [facility] Received: 03/15/24 Diagnosis A. Bladder, random posterior wall, biopsy: Mild chronic cystitis. B. Bladder, right lateral wall, biopsy: Mild chronic cystitis. Muscularis propria within normal limits. C. Bladder, left lateral wall, biopsy: Mild chronic cystitis. Clinical History Microscopic hematuria / abnormal finding on CT scan Date of Service: 12/16/23 EXAMINATION: CT ABDOMEN AND PELVIS WITHOUT AND WITH CONTRAST CLINICAL INFORMATION: Gross hematuria. COMPARISON: 05/10/2018 TECHNIQUE: Noncontrast CT of the abdomen and pelvis is performed followed by split bolus contrast-enhanced images using 85 mL Omnipaque 350 contrast.? Postcontrast imaging is performed during the combined nephrogram and excretion phase. Sagittal and coronal reformatted images were obtained on the technologist's workstation for both the precontrast and postcontrast phases. This CT examination was performed using dose optimization techniques as appropriate, variously including the following: *Automated exposure control *Adjustment of mA and/or kV according to patient size (this includes techniques or standardized protocols for targeted exams where dose is matched to indication/reason for exam; i.e. extremities or head) *Use of iterative reconstruction technique DLP: 880 mGy-cm FINDINGS: LUNG BASES: Small hiatal hernia. LIVER, GALLBLADDER, AND BILIARY TREE: The liver is normal in size and contour. No suspicious hepatic lesion or biliary ductal dilatation is present. The gallbladder is unremarkable with no evidence of radiopaque gallstones, gallbladder wall thickening, or obvious pericholecystic inflammatory changes. PANCREAS: No ductal dilatation. SPLEEN: Chronic granulomatous disease. ADRENAL GLANDS: No adrenal mass. KIDNEYS AND URETERS: The kidneys are symmetric in size and enhancement. No renal or ureteral calculus. No perinephric stranding. Delayed images demonstrate intact renal function. Bilateral collecting systems and opacified portions of the ureters are nondilated. There is possible thickening of the distal right ureter at the ureterovesical junction/ureteral insertion. BLADDER: Underdistended. No bladder calculus. The bladder mostly fills with excreted contrast. No intraluminal filling defects are appreciated. GASTROINTESTINAL TRACT: Small and large bowel loops are of normal caliber. No small bowel obstruction. Appendix is within normal limits. ABDOMINAL WALL: Fat-containing umbilical hernia. LYMPH NODES: No lymphadenopathy. VASCULAR: Normal caliber abdominal aorta. PELVIC VISCERA: Enlarged prostate gland. OSSEUS STRUCTURES: No destructive bone lesions. IMPRESSION: There is possible thickening of the distal right ureter at the ureterovesical junction/ureteral insertion. No hydronephrosis. Consider urologic consultation and ureteroscopy. Assessment & Plan Assessment & Plan (1) BPH (benign prostatic hyperplasia): Code(s): N40.0 - Benign prostatic hyperplasia without lower urinary tract symptoms Category: Medical (2) Microscopic hematuria: Code(s): R31.29 - Other microscopic hematuria Category: Medical (3) Screening PSA (prostate specific antigen): Code(s): Z12.5 - Encounter for screening for malignant neoplasm of prostate Category: Medical Plan Follow-up with nurse practitioner Barbara Farooq in 6 months PSA prior. Orders: Orders PSA,Total (Free>4and<10) 4 Months N40.0 - Benign prostatic hyperplasia without lower urinary tract symptoms, Z12.5 - Encounter for screening for malignant neoplasm of prostate Patient Instructions: The patient had an opportunity to ask questions regarding treatment plan. The patient expressed understanding and agreement with the above treatment plan. The patient is aware they should contact our office by phone for worsening of their current condition or the appearance of new symptoms. Compliance is encouraged with any medications and followup testing that is ordered. It is a privilege to be allowed the opportunity to participate in the urologic care of your patient. If you have any questions or concerns regarding treatment for the above conditions please do not hesitate to contact me. The office telephone contact is [phone]. This note is constructed in part using voice recognition software. While every effort has been made to ensure accuracy pastoral ministries professor errors may have been included. Yours sincerely, Oscar Lopez MD Coding Level of Care Code Est Pt Level 3 (80059) Diagnoses BPH (benign prostatic hyperplasia) N40.0 Microscopic hematuria R31.29 Screening PSA (prostate specific antigen) Z12.5
== END 2024-04-18 12:12 | disposition home or self-care (01) ==
PROVIDERS: Visit Provider Urology
DX: N40.0 Benign prostatic hyperplasia without lower urinary tract symptoms (principal); R31.29 Other microscopic hematuria; Z12.5 Encounter for screening for malignant neoplasm of prostate
CPT/HCPCS: 99213

== ENCOUNTER → 2024-04-18 11:28 | Outpatient (BNVA) | payer MEDICARE, MEDICAID, SELFPAY | PROVIDERS: Visit Provider Urology | DX: N40.0 Benign prostatic hyperplasia without lower urinary tract symptoms (principal); R31.29 Other microscopic hematuria; Z12.5 Encounter for screening for malignant neoplasm of prostate | CPT/HCPCS: 99212 ==

== ENCOUNTER 2024-09-20 13:20 | Day surgery (SDC) | payer OTHER, SELFPAY ==
--- NOTE | 2024-04-21 11:49 | HO.ANESPROP2 ---
HPI - Anesthesia Eval Consult details Narrative: 68yo M for Colonoscopy PMF Active Problems Active Problems: All Active Problems Screening PSA (prostate specific antigen) (Acute) Abnormal finding on CT scan (Acute) Illiterate (Acute) Constipation (Acute) Anosmia (Acute) Chest pain at rest (Acute) Pre-op examination (Acute) BPH (benign prostatic hyperplasia) (Acute) Degenerative disc disease, cervical (Acute) Lumbar degenerative disc disease (Acute) Chronic pain (Acute) High cholesterol (Acute) History of nicotine dependence (Acute) Microscopic hematuria (Acute) COVID-19 (Acute) Angioedema (Acute) Right inguinal hernia (Acute) Past Medical History Medical History Gastritis Herniated disc, cervical Hemorrhoids Hypertension Family History Family History Mother Liver disease Father Epilepsy Family history of problems with anesthesia: No Surgical History Surgical History History of prostate surgery H/O inguinal hernia repair History of right inguinal hernia repair (02/13/23) History of Problems with Anesthesia: No Social History Social History Alcohol intake: former Comment: given pyridium Patient Tobacco Use Status: Never used Tobacco Meds Allergies Allergy/AdvReac Type Severity Reaction Status Date / Time RENA Inhibitors AdvReac Severe Angioedema Verified 04/18/24 11:46 Home Medications ?Medication ?Instructions ?Recorded ?Confirmed ?Last Taken ?Type rosuvastatin 10 mg tablet 10 mg PO BEDTIME 11/02/23 04/18/24 Unknown History cetirizine 10 mg tablet 10 mg PO QAM 01/12/24 04/18/24 Unknown History Exam Pertinent Lab Results Pertinent Lab Results: Laboratory Tests 03/31/24 04/01/24 23:45 07:45 WBC 6.7 Hgb 13.7 L Hct 39.3 L Plt Count 229 Sodium 142 Potassium 4.3 Chloride 108 Carbon Dioxide 26 BUN 16 Creatinine 0.99 Assessment and Plan Assessment Anesthesia Assessment: Chart Reviewed Final Anesthetic Review Family History of Problems with Anesthesia: No History of Problems with Anesthesia: No
--- NOTE | 2024-09-19 13:08 | HO.ANESPROP2 ---
Documented by User: Dalila Jean NP 09/19/24 13:09 HPI - Anesthesia Eval Consult details Narrative: 68yo M for Colonoscopy PMFSH Active Problems Active Problems: All Active Problems Screening PSA (prostate specific antigen) (Acute) Abnormal finding on CT scan (Acute) Illiterate (Acute) Constipation (Acute) Anosmia (Acute) Chest pain at rest (Acute) Pre-op examination (Acute) BPH (benign prostatic hyperplasia) (Acute) Degenerative disc disease, cervical (Acute) Lumbar degenerative disc disease (Acute) Chronic pain (Acute) High cholesterol (Acute) History of nicotine dependence (Acute) Microscopic hematuria (Acute) Right inguinal hernia (Acute) Angioedema (Acute) COVID-19 (Acute) Past Medical History Medical History Gastritis Herniated disc, cervical Hemorrhoids Hypertension Family History Family History Mother Liver disease Father Epilepsy Family history of problems with anesthesia: No Surgical History Surgical History History of prostate surgery H/O inguinal hernia repair History of right inguinal hernia repair (02/13/23) History of Problems with Anesthesia: No Social History Social History Alcohol intake: former Comment: given pyridium Patient Tobacco Use Status: Never used Tobacco Use of substances other than those prescribed or required for medical reasons: No Are you DNR?: No Advance Directives: No Advance Directives Information Provided: Yes Recently lost weight without trying: No Meds Allergies Allergy/AdvReac Type Severity Reaction Status Date / Time RENA Inhibitors AdvReac Severe Angioedema Verified 04/18/24 11:46 Home Medications ?Medication ?Instructions ?Recorded ?Confirmed ?Last Taken ?Type rosuvastatin 10 mg tablet 10 mg PO BEDTIME 11/02/23 04/18/24 09/20/24 History cetirizine 10 mg tablet 10 mg PO QAM 01/12/24 04/18/24 Unknown History Assessment and Plan Assessment Anesthesia Assessment: Chart Reviewed Final Anesthetic Review Family History of Problems with Anesthesia: No History of Problems with Anesthesia: No Documented by User: Gail Lane MD 09/20/24 15:50 PMFSH Past Medical History Medical History Gastritis Herniated disc, cervical Hemorrhoids Hypertension Family History Family History Mother Liver disease Father Epilepsy Family history of problems with anesthesia: No Surgical History Surgical History History of prostate surgery H/O inguinal hernia repair History of right inguinal hernia repair (02/13/23) History of Problems with Anesthesia: No Social History Social History Alcohol intake: former Comment: given pyridium Patient Tobacco Use Status: Never used Tobacco Use of substances other than those prescribed or required for medical reasons: No Are you DNR?: No Advance Directives: No Advance Directives Information Provided: Yes Recently lost weight without trying: No Meds Allergies Allergy/AdvReac Type Severity Reaction Status Date / Time RENA Inhibitors AdvReac Severe Angioedema Verified 04/18/24 11:46 Home Medications ?Medication ?Instructions ?Recorded ?Confirmed ?Last Taken ?Type rosuvastatin 10 mg tablet 10 mg PO BEDTIME 11/02/23 04/18/24 09/20/24 History cetirizine 10 mg tablet 10 mg PO QAM 01/12/24 04/18/24 Unknown History Exam Height,Weight and Vital Signs: Height 5 ft 6 in Weight 73.142 kg Vital Signs Temp Pulse Resp BP Pulse Ox O2 Del Method 09/20/24 14:15 98.4 F 97 16 122/73 97 Room Air Airway Mallampati Class: II TM Dist: >3cm Neck ROM: Full Loose/Missing/Broken Teeth: Yes (Broken tooth bottom right back. Missing tooth top left back. Denies loose teeth) Heart: RRR Lungs: CTAB Assessment and Plan Assessment Anesthesia Assessment: Anesthesia Plan Discussed and Chart Reviewed Final Anesthetic Review Family History of Problems with Anesthesia: No History of Problems with Anesthesia: No NPO: Yes ASA Class: II Final Preanesthetic Review: No Changes in Pt Med Stat, Meds/Allgs Chart Reviewed, Consent Obtained/Reviewed and Anes Risks/Benef Reviewed Patient Risk: Low Procedure Risk: Low Assessment/Block/Sedation in SS: Assess/Block/Sedation-SS Anesthetic Plan Anesthetic Plan: TIVA Disposition: Standard PACU
[2024-09-20 14:01] VITALS: BMI 26.0
--- NOTE | 2024-09-20 14:09 | PC.NURSE ---
argenis came late because his daughter told him he needed to arrive at 1pm. [place] speaking
[2024-09-20 14:15] VITALS: BP 122/73; PULSE 97; RESP 16; TEMP 36.9; O2SAT 97
[2024-09-20] MEDS: Lactated Ringers 1,000 ML 100 ML IVCONT (14:28)
--- NOTE | 2024-09-20 15:13 | MHC.SHP ---
Pre-Procedural Eval Section A - 24 Hr Update-Section A only Date of Service: 09/20/24 Section B - Complete if H&P > 30 days Chief Complaint: Constipation, unspecified Relevant Family History (Specify if Yes): No Relevant Social History: None Present Medications: see Short Stay Collaborative assessment Medical History: Significant History (Allergic rhinitis Hypertension High cholesterol CAD Chronic pain/chronic low back pain LUMBAR HERNIATED DISCS CERVICAL HERNIATED DISC BPH Visual impairment - s/p eye injury in sports left eye vision decreased. Hemorrhoids Depression/anxiety) History of Previous Operations: Relevant previous surgery/procedure and date(s) (Inguinal hernia repair - rt TURP Colonoscopy with polyps 2years ago @ [facility]. ) Allergies: Allergies Allergy/AdvReac Type Severity Reaction Status Date / Time RENA Inhibitors AdvReac Severe Angioedema Verified 04/18/24 11:46 Review of Systems Sugical H&P ROS: Negative: Constitution, Cardiovascular, Respiratory, Neurological, Psychiatric, Hem-Onc, Allergic/Immunologic, Gastrointestinal, Genitourinary, Musculoskeletal, Integumentary, Endocrine and Eyes/Ears/Nose/Throat Exam Surgical H&P Exam: Normal: HEENT, Normal: Heart, Normal: Lungs, Normal: Extremities, Normal: Abdomen, Normal: Skin and Normal: Neurological Plan Diagnosis/Plan: Unchanged I have reviewed the history and physical and performed a pertinent physical examination on my patient. No changes have occurred unless specified. Time Spent With Patient Time: Total time managing care of this patient today ____ minutes.
--- NOTE | 2024-09-20 15:56 | HO.OPN-COLON ---
Colonoscopy Operative Note Operative Note Date of Service: 09/20/24 Narrative: Operative Information Procedure Description: Colonoscopy Indication: screening Anesthesia: MAC COLONOSCOPY Instrument: Olympus variable stiffness adult scope 190L Colonoscopy Monitoring: Vital signs and clinical assessment, continuous EKG monitoring, Pulse oximetry, Carbon Dioxide monitoring and blood pressure monitoring were done throughout the procedure. Colon withdrawal time was 11 minutes. Procedure: The patient was placed in the left lateral decubitis position and pre-procedure medications were administered. After a digital rectal examination of the ano-rectum, the video colonoscope was inserted into the rectum and advanced through the colon to the cecum/TI. The colonoscope was slowly withdrawn in a retrograde panoramic fashion and the colon mucosa was carefully examined including a retroflexed view of the rectum. Findings and interventions are described below. Procedure Difficulty: moderate Findings: Terminal Ileum-not intubated Cecum:normal Ascending Colon: 5-7 mm sessile polyp removed with cold snare Transverse Colon - 5-7 mm sessile polyp removed with cold snare Descending Colon:normal Sigmoid Colon: normal Rectum: Retroflexion with medium sized internal hemorrhoids seen, grade I Anorectum - normal Intervention: cold forceps Colon preparation: [facility] Bowel Preparation Scale Right colon; 2 Transverse colon: 2 Left colon; 2 (0 = Unprepared colon segment with mucosa not seen due to solid stool that cannot be cleared. 1 = Portion of mucosa of the colon segment seen, but other areas of the colon segment not well seen due to staining, residual stool and/or opaque liquid. 2 = Minor amount of residual staining, small fragments of stool and/or opaque liquid, but mucosa of colon segment seen well. 3 = Entire mucosa of colon segment seen well with no residual staining, small fragments of stool or opaque liquid) Impression and Post Procedure Diagnosis: diverticulosis colon polyps internal hemorrhoids Plan: High fiber diet leaflet Avoid straining at stool, epsom salts and sitz bath, anusol supps or cream Repeat Colonoscopy in 5 years due to polyps or earlier if clinically indicated Above findings were reviewed with the patient and relevant handouts were provided if indicated.
[2024-09-20 16:02] VITALS: BP 96/63; PULSE 80; RESP 20; TEMP 36.2; O2SAT 95
[2024-09-20 16:17] VITALS: BP 103/74; PULSE 84; RESP 20; O2SAT 98
[2024-09-20 16:32] VITALS: BP 105/75; PULSE 74; RESP 20; TEMP 36.4; O2SAT 98
== END 2024-09-20 16:58 | disposition home or self-care (01) ==
PROVIDERS: PCP Registered Nurse; Visit Provider Internal Medicine Gastroenterology
PROC: 0DJD8ZZ Inspection of Lower Intestinal Tract, Via Natural or Artificial Opening Endoscopic (ICD-10-PCS; CPT 45378; principal; 2024-09-20 15:10)
DX: Z12.11 Encounter for screening for malignant neoplasm of colon (principal); D12.2 Benign neoplasm of ascending colon; D12.3 Benign neoplasm of transverse colon; K64.0 First degree hemorrhoids; K59.00 Constipation, unspecified; I10 Essential (primary) hypertension; E78.00 Pure hypercholesterolemia, unspecified; I25.10 Atherosclerotic heart disease of native coronary artery without angina pectoris; R43.0 Anosmia; Z98.890 Other specified postprocedural states; Z79.899 Other long term (current) drug therapy; Z55.0 Illiteracy and low-level literacy; Z88.8 Allergy status to other drugs, medicaments and biological substances; R07.9 Chest pain, unspecified
CPT/HCPCS: 45385; 88305; J2003; J2704

== ENCOUNTER → 2024-09-20 13:20 | Outpatient (BNV) | payer OTHER, SELFPAY | PROVIDERS: PCP Registered Nurse; Visit Provider Internal Medicine Gastroenterology | DX: Z12.11 Encounter for screening for malignant neoplasm of colon (principal); D12.3 Benign neoplasm of transverse colon; D12.2 Benign neoplasm of ascending colon; K64.0 First degree hemorrhoids | CPT/HCPCS: 45385 ==

== ENCOUNTER 2025-10-29 01:52 | Emergency (ER) | payer OTHER, SELFPAY ==
[2025-10-29 02:12] VITALS: BP 145/8; PULSE 87; RESP 16; TEMP 36.9; O2SAT 97; BMI 25.9
--- OUTSIDE RECORDS SUMMARY | 2025-10-29 04:04 | XMS_ITS | Encounter Summary ---
Author Organization [employer] Address [address] [place] [address] Care Team Providers Care Golf Ball Inspector Name Role Phone Annette Emanuel MD Primary Care Provide r [facility] Primary Care Provider [phone] Encounter Details Date Type Department Care Team ([facility] st Contact Info) Description 02/06/2023 Orders Only [facility] MEDICINE [address] [place] [address] Lelo Carrero RN [address] [place] [address] Essential hypertension Social History Tobacco Use Types Packs/Day Years Used Date Smoking Tobacco: Never Smokeless Tobacco: Never Alcohol Use Standard Drinks/Week Comments Never 0 (1 standard drink = 0.6 oz pur e alcohol) Sex and Gender Information Value Date Recorded Sex Assigned at Male 09/29/2022 10:35 AM EDT Legal Sex Male 10:35 AM EDT Gender Identity Male 09/29/2022 10:35 AM EDT Sexual Orientation Straight 09/29/2022 10 :35 AM EDT COVID-19 Exposure Response Date Recorded In the last 10 days, have yo u been in contact with someone who was confirmed or suspected to have Coronavirus/COVID-19? No / Unsure 02/06/2023 12:56 PM EST documented as of this encounter Plan of Treatment Not on file documented as of this encounter Visit Diagnoses Diagnosis Essential hypertension Unspecified essential hypertension documented in this encounter Care Teams Golf Ball Inspector Relationship Specialty Start Date End Date Annette Emanuel MD [address] [place] [address] PCP - General Family Medicine 04/14/19 03/05/23 ColumbusRachelle FNP [address] [place] [address] PCP - General Family Medicine 03/06/23 Karyna Walker Gl Accountant 09/30/23 12/31/23 documented as of this encounter
--- OUTSIDE RECORDS SUMMARY | 2025-10-29 04:04 | XMS_ITS | Encounter Summary ---
Author Organization [employer] Address [address] [place] [address] Care Team Providers Care Trim Installer Name Role Phone [facility] Primary Care Provider [phone] Encounter Details Date Type Department Care Team ([facility] st Contact Info) Description 09/09/2023 Orders Only [facility] MEDICINE [address] [place] [address] [facility] [address] [place] [address] Hematuria, unspecified type (Primary Dx) Social History Tobacco Use Types Packs/Day Years Used Date Smoking Tobacco: Former Cigarettes Smokeless Tobacco: Never Alcohol Use Standard Drinks/Week Comments Never 0 (1 standard drink = 0.6 oz pur e alcohol) Depression Answer Date Recorded Patient Health Questionnaire-9 Score 8 08/26/2023 Housing Stability Answer Date Recorded What is your housing situation today? I have bang alberto 09/08/[address] you li ve. Do you have problems with any of the following? None of the above 09/08/2023 Food Insecurity Answer Date Recorded Within the past 12 months, y ou worried that your food would run out before you got money to buy more: Never True 09/08/2023 Within the past 12 months,th e food you bought just didn't last and you didn't have enough money to get more: Never True 08/2023 Transportation Answer Date Recorded In the past 12 months, has l ack of transportation kept you from medical appts, meetings, work or from getting things needed for daily living? No 09/08/2023 Utilities Answer Date Recorded In the past 12 months, has t he electric, gas, oil or water company threatened to shut off services in your home? No 09/08/2023 Depression Answer Date Recorded Patient Health Questionnaire-2 Score 2 08/26/2023 Sex and Gender Information Value Date Recorded Sex Assigned at Male 09/29/2022 10:35 AM EDT Legal Sex Male 10:35 AM EDT Gender Identity Male 09/29/2022 10:35 AM EDT Sexual Orientation Straight 09/29/2022 10 :35 AM EDT documented as of this encounter Plan of Treatment Not on file documented as of this encounter Visit Diagnoses Diagnosis Hematuria, unspecified type- Primary documented in this encounter Additional Health Concerns Assessment Noted Time PHQ-9 Depression Total Score: 8 08/26/20 10:55 AM EDT documented as of this encounter Care Teams Trim Installer Relationship Specialty Start Date End Date Rachelle Ramirez FNP [address] [place] [id number] PCP - General Family Medicine 03/06/23 Karyna Walker E M Assembler 09/30/23 12/31/23 documented as of this encounter
--- OUTSIDE RECORDS SUMMARY | 2025-10-29 04:04 | XMS_ITS | Clinical Summary ---
Author Organization [email or web address] Address [address] [place] [address] Care Team Providers Care Binder Cutter Name Role Phone [facility] Primary Care Provider [phone] Allergies Active Allergy Reactions Criticality Noted Date Comments Amlodipine Besy-Benazepril Hcl Angioedema High 01/12 Medications Banophen 25 MG capsule Take 1 capsule by mouth if needed in the morning, at noon, and at bedtime for allergies. 01/13/20 23 Active acetaminophen (Tylenol) 500 MG tablet Take 1 tablet by mouth Every 6-8 hours as needed. 08/15/20 20 Active cyclobenzaprine (Flexeril) 5 MG tablet Take 1 tablet by mouth 3 times daily. 07/01/20 19 Active fluticasone (Flonase) 50 MCG/ACT nasal sprayIndications: Nasal congestion Administer 1-2 sprays into each nostril in the morning. Shake gently. Before first use, prime pump. After use, clean tip and replace cap. 16 g 2 05/27/20 23 Active Blood Pressure Monitor kitIndications:Es sential hypertension Use as directed 1 kit 05/27/20 23 Active cetirizine (ZyrTEC) 10 MG tabletIndications :Nasal congestion TAKE 1 TABLET BY MOUTH EVERY MORNING 90 tablet 1 12/12/19 25 Active EPINEPHrine (Epipen) 0.3 MG/0.3ML injection syringeIndication s:Environmental allergies Inject 0.3 mL (0.3 mg) as directed 1 (one) time if needed for anaphylaxis. Inject into upper leg. Call 911 after use. 1 each 3 08/16/20 25 09/18/ 2026 Active amLODIPine (Norvasc) 10 MG tabletIndications :Essential hypertension Take 1 tablet (10 mg) by mouth Once per day. 90 tablet 3 08/16/20 25 Active rosuvastatin (Crestor) 10 MG tabletIndications :Mixed hyperlipidemia Take 1 tablet (10 mg) by mouth Once per day. 90 tablet 3 08/16/20 25 Active docusate sodium (Colace) 100 MG capsule TAKE 1 CAPSULE BY MOUTH TWICE DAILY 180 capsule 1 5 8:44 AM EST 10/06/20 25 Active docusate sodium (Colace) 100 MG capsule TAKE 1 CAPSULE BY MOUTH TWICE DAILY 180 capsule 1 04/17/20 25 2024 Discontinued Active Problems Problem Noted Date Diagnosed Date Idiopathic hematuria 10/26/2024 Overview (10/26/2024): He presented to ED on 04/01/24 due to gross hematuria. Tx'd with cefuroxime with sx imrpvoement. Follow up with Dr. Lopez urology--cystoscopy and retrogrades were within normal limits no suspicious bladder lesions visualized. Random bladder biopsies revealed pathology results of chronic cystitis. No atypical cells. PSA-08/26/2023--2.44 ng/mL Homelessness 08/27/2023 BPH (benign prostatic hyperplasia) 06/11/2023 Overview (06/11/2023): S/P TURP Assessment & Plan (08/27/2023 10:04 AM EDT): Repeat PSA Chronic low back pain 06/11/2023 Healthcare maintenance 06/11/2023 Overview (04/18/2024): C-Scope: Referred to GI 05/2023 PSA: 07/2023 Eye exam-needs referral; will submit referral LDLCT: <20 pack year smoking hx. No indication. AAA: Ordered 04/18/24 Assessment & Plan (12/14/2023 6:36 PM EST): Will resubmit GI referral for CRC screening Pt will go to pharmacy for RSV and shingles vaccine Declines COVID Mixed hyperlipidemia 05/27/2023 Overview (05/27/2023): Rosuvastatin 10mg Assessment & Plan (10/05/2023 8:18 PM EST): Tolerating well Plan to repeat FLP at follow up Assessment & Plan (08/27/2023 10:04 AM EDT): Repeat lipid panel Pending result and ASCVD score plan to titrate to high dose statin Assessment & Plan (06/11/2023 2:17 PM EDT): Repeat lipid panel Continue rosuvastatin 10mg Inguinal hernia of right keya e without obstruction or gangrene 02/06/2023 Assessment & Plan (02/06/2023 3:30 PM EST): Stat referral to [facility] surgery, appointment made February 09, 2023 at 100pm Essential hypertension 02/06/2023 Overview (10/26/2024): Amlodipine 10 mg daily Angioedema with ACEi - Aerobic exercise to reduce BP. Initial goal of 30 min walk 3-5x/week. Increase as tolerated. - low-sodium diet (goal: <2g/day) and heart healthy diet such as DASH to reduce BP and prevent ASCVD. - Home BP monitoring 1-2 x day with goal of <140/90. - Seek immediate medical attention for chest pain, palpitations, SOB, syncope, or sudden changes in mental status. - Do not change or discontinue current prescriptions without first consulting health care provider Assessment & Plan (11/25/2023 9:21 AM EST): Well controlled Continue current regimen Assessment & Plan (10/05/2023 8:17 PM EST): Confirmed accuracy of home BP readings Home BP well controlled-increase in BP in office s/t anxiety/whitecoat hypertension Continue to monitor No medication changes Assessment & Plan (08/27/2023 10:02 AM EDT): BP with mild elevation in office. Home BP well controlled. Patient will continue to monitor-RN BP check 2 weeks. Will bring machine to verify accuracy Continue current regimen Repeat labs ordered Assessment & Plan (06/11/2023 2:17 PM EDT): Well controlled Continue current regimen Assessment & Plan (02/06/2023 3:29 PM EST): Continue Amlodipine 10mg daily Allergy list updated Visual impairment 02/05/2023 Encounters Date Type Department Care Team Description 10/05/2025 Refill [facility] [address] [place] [address] Rachelle Ramirez FNP 08/16/2025 9:15 AM EDT Office Visit [facility] [address] [place] [address] Rachelle Ramirez FNP Essential hypertension (Primary Dx); Environmental allergies; Mixed hyperlipidemia; Dietary counseling; Exercise counseling 08/16/2025 Travel 08/15/2025 Telephone [facility] [address] [place] [address] Rachelle Ramirez FNP Chart Prep from Last 3 Months Immunizations Immunization Administration Dates Next Due Influenza injectable quadriv alent IIV4 with preservative 11/09/2019 Influenza injectable quadrivalent preservative f ree 08/26/2023,02/03/2022 Influenza, High Dose Seasonal, Preservative Free 10/19/2024 Pfizer Covid-19 Vaccine 12+ 10/19/2024 Pneumococcal Conjugate PCV 20 02/24/2023 Tdap 05/21/2022 Zoster, Recombinant 06/12/2023 Family History Medical History Relation Name Comments Liver cancer Mother Colon cancer Neg Hx Prostate cancer Neg Hx Relation Name Status Comments Mother Social History Tobacco Use Types Packs/Day Years Used Date Smoking Tobacco: Former Cigarettes Smokeless Tobacco: Never Tobacco Cessation:Counseling Given: Not Answered Alcohol Use Standard Drinks/Week Comments Never 0 (1 standard drink = 0.6 oz pur e alcohol) Alcohol Answer Date Recorded Frequency of Alcohol Consumption Not on file 11/25/2023 Average Number of Drinks Not on file 023 Frequency of Binge Drinking Not on file 10/31 Score 0 11/25/2023 Depression Answer Date Recorded Patient Health Questionnaire-9 Score 0 08/16/2025 Patient Health Questionnaire-9 Score 0 08/16/2025 Last PHQ-9: Questionnaire Data Not on file 0 08/16/2025 Housing Stability Answer Date Recorded What is your housing situation today? I have bang laberto 10/11/[address] you li ve. Do you have problems with any of the following? None of the above 10/11/2024 Food Insecurity Answer Date Recorded Within the past 12 months, y ou worried that your food would run out before you got money to buy more: Sometimes True 2023 Within the past 12 months,th e food you bought just didn't last and you didn't have enough money to get more: Sometimes True 10/19/2024 Transportation Answer Date Recorded In the past 12 months, has l ack of transportation kept you from medical appts, meetings, work or from getting things needed for daily living? No 10/19/2024 Utilities Answer Date Recorded In the past 12 months, has t he electric, gas, oil or water company threatened to shut off services in your home? No 10/11/2024 Depression Answer Date Recorded Patient Health Questionnaire-2 Score 0 08/16/2025 Internet Access Answer Date Recorded Internet Access Q1 I am not sure 10/18/2025 Internet Access Q2 Not on file 10/18/2025 Sex and Gender Information Value Date Recorded Sex Assigned at Male 09/29/2022 10:35 AM EDT Legal Sex Male 10:35 AM EDT Gender Identity Male 09/29/2022 10:35 AM EDT Sexual Orientation Straight 09/29/2022 10 :35 AM EDT Last Filed Vital Signs Vital Sign Reading Time Taken Comments Blood Pressure 128/80 08/16/2025 8:48 AM EDT Pulse 80 08/16/2025 8:48 AM EDT Temperature 36.2 C (97.2 F) 08/16/2025 8:48 AM EDT Respiratory Rate 18 08/16/2025 8:48 AM EDT Oxygen Saturation 97% 10/19/2024 10:04 AM EST Inhaled Oxygen Concentration - - Weight 78.2 kg (172 lb 6.4 oz) 08/16/2025 8:48 A M EDT Height 167.6 cm (5' 6 ) 08/16/2025 8:48 AM EDT Body Mass Index 27.83 08/16/2025 8:48 AM EDT Plan of Treatment Health Maintenance Due Date Last Done Comments CT Colonography 1957 FIT DNA/Cologuard 1957 FIT 1957 FOBT 1957 Sigmoidoscopy 1957 Alcohol/Substance Use Screening 1969 Zoster Vaccines (2 of 2) 08/07/2023 06/12/2023 COVID-19 Vaccine (2 - season) 2025 10/19/2024 Influenza Vaccine (#1) 2025 , 08/26/2023, 02/03/2022, Additional history exists SDOH Screening 10/19/2025 10/19/2024 Depression Screening 08/16/2026 08/16/2025, 08/16/20 Tobacco Screening 08/16/2026 08/16/2025 Lipid Panel 08/26/2028 08/26/2023, 02/24/2023 Colonoscopy 09/20/2029 09/20/2024 Colorectal Cancer Screening 09/20/2029 DTaP/Tdap/Td Vaccines (2 - Td or Tdap) 05/21/2032 05/21/2022 RSV Patients and Patients Aged 60 years or older (1 - 1-dose 75+ series) 2032 Hepatitis C Screening Completed 02/24/2023 Pneumococcal Vaccine: 50+ Years Completed 02/24/2023 HIB Vaccines Aged Out No longer eligi ble based on patient's age to complete this topic HPV Vaccines Aged Out No longer eligi ble based on patient's age to complete this topic Hepatitis A Vaccines Aged Out No long er eligible based on patient's age to complete this topic Hepatitis B Vaccines Aged Out No long er eligible based on patient's age to complete this topic IPV Vaccines Aged Out No longer eligi ble based on patient's age to complete this topic Meningococcal B Vaccine Aged Out No l onger eligible based on patient's age to complete this topic Meningococcal Vaccine Aged Out No jadon trey eligible based on patient's age to complete this topic RSV under 20 months Aged Out No longe r eligible based on patient's age to complete this topic Rotavirus Vaccines Aged Out No longer eligible based on patient's age to complete this topic Procedures Procedure Name Priority Date/Time Associated Diagnosis Comments COLONOSCOPY Routine 09/20/2024 LIPID PANEL, STANDARD Routine 08/26/2023 11:44 AM EDT Essential hypertension HEPATITIS C AB W/REFL TO HCV RNA, QN, PCR Routine 02/24/2023 10:39 AM EDT Healthcare maintenance from Last 3 Months or Most Recently Relevant to Health Maintenance Results * (ABNORMAL) Colonoscopy (09/20/2024) Colonoscopy Abnormal( A) Normal Comment:repeat 5 years [facility] Provider MD HEALTH MAINTENANCE Final Result * Lipid Panel, Standard (08/26/2023 11:44 AM EDT) Triglycerides 82 <150 mg/dL [facility] Comment:Desirable Triglyceri de: less than 150 mg/dLBorderline High Triglyceride 150-199 mg/dLHigh Triglyceride: 200-499 mg/dLVery High Triglyceride: greater than or equal to 5OO mg/dL Cholesterol 136 <200 mg/dL [facility] Comment:Desirable Cholestero l: less than 200 mg/dLBorderline High Cholesterol: 200-239 mg/dLHigh Cholesterol: greater than 239 mg/dL LDL Cholesterol Calculated 71 <100 mg/dL [facility] Comment:Desirable LDL: less than 100 mg/dLNear Optimal/Above Optimal LDL: 110- 129 mg/dLBorderline High LDL: 130-159 mg/dLHigh LDL: 160-189 mg/dLVery High LDL: greater than or equal to 190 mg/dL HDL Cholesterol 49 >40 mg/dL [facility] Comment:Desirable HDL: great er than 40 mg/dL Note: This HDL assay may give artificially low results in patients with liver disease. Blood Venous blood specimen / Unknown 08/26/2023 11:44 AM EDT 08/26/2023 1:07 PM EDT [facility] BLOOD ORDERABLES Final Re sult [facility] [address] [place] [address] [phone] * Hepatitis C Antibody with Reflex to HCV, RNA, Quantitative, Real-Time PCR (02/24/2023 10:39 AM EDT) Hepatitis C Antibody NON-REACT SABINO NON-REACT SABINO [facility] Index 0.05 <1.00 [facility] Comment: HCV antibody was non-reactive. There is no laboratory evidence of HCV infection. In most cases, no further action is required. However, if recent HCV exposure is suspected, a test for HCV RNA (test code 78733) is suggested. For additional information please refer to http://education.Trigemina/faq/KBW97u4 (This link is being provided for informational/ educational purposes only.) Blood Venous blood specimen / Unknown 02/24/2023 10:39 AM EDT 02/24/2023 10:40 AM EDT Narrative [facility] - 02/25/2023 7:53 PM EDT FASTING:YES PATIENT REFUSED SOME TESTING; PATIENT ENCOURAGED TO RETURN. FASTING: YES [facility] BLOOD ORDERABLES Final [facility] [address], [place] [address] [facility] [address] [place] [address] from Last 3 Months or Most Recently Relevant to Health Maintenance Insurance [employer] [facility] [facility] [employer] (HMO D-SNP) RANJAN BRIGHT [id number] Care Teams Binder Cutter Relationship Specialty Start Date End Date Rachelle Ramirez FNP [address] [place] [id number] PCP - General Family Medicine 03/06/23
--- OUTSIDE RECORDS SUMMARY | 2025-10-29 04:04 | XMS_ITS | Encounter Summary ---
Author Organization [employer] Address [address] [place] [address] Care Team Providers Care Terrazzo Worker Apprentice Name Role Phone Annette Emanuel MD Primary Care Provide r [facility] Primary Care Provider [phone] Encounter Details Date Type Department Care Team ([facility] st Contact Info) Description 01/14/[address] [facility] [address] [place] [address] Annette Emanuel MD [address] [place] [address] Social History Tobacco Use Types Packs/Day Years Used Date Smoking Tobacco: Never Assessed Sex and Gender Information Value Date Recorded [...] suspected to have Coronavirus/COVID-19? No / Unsure 01/12/2023 2:13 PM EST documented as of this encounter Miscellaneous Notes * Telephone Encounter - Lamonte Morel - 01/14/2023 12:25 PM EST HDF F/U (no symptoms) Patient hospitalized at [facility]. Patient was admitted on 01/12/2023 and discharged on 01/14/2023. The patient was diagnosed with Possible Ageodima- Swelling. Patient advised will forward to [facility] Team Nurse for follow up and appointment scheduling. Please contact [phone] documented in this encounter Plan of Treatment Not on file documented as of this encounter Visit Diagnoses Not on filedocumented in this encounter Care Teams Terrazzo Worker Apprentice Relationship Specialty Start Date End Date Annette Emanuel MD [address] [place] [address] PCP - General Family Medicine 04/14/19 03/05/23 JamesRachelle fountain FNP [address] [place] [address] PCP - General Family Medicine 03/06/23 Karyna Walker Recreation Aide 09/30/23 12/31/23 documented as of this encounter
--- NOTE | 2025-10-29 08:30 | PC.NURSE ---
This RN made aware by additional staff that pt left ED without being seen by provider. No IV line was placed in patient. Pt ambulatory/independent with steady gait while oob. automobile and property underwriter made aware.
--- NOTE | 2025-10-29 08:44 | PC.NURSE ---
This production underwriter talked with pt at 0700, pt was very upset about how long he had been waiting for. This RN provided emotional support as the charge nurse on, advised that pt shouldbe picked up shortly, that our providers were working through a lot of pts, warm compress given to patient, PO intake given to pt, at that time pt in agreement to stay at start of shift.
== END 2025-10-29 09:18 | disposition left against medical advice (07) ==
PROVIDERS: Emergency Provider Emergency Medicine
DX: H57.10 Ocular pain, unspecified eye (principal); Z53.21 Procedure and treatment not carried out due to patient leaving prior to being seen by health care provider
CPT/HCPCS: 99281; 99284